=== PATIENT | female | born 1995 | race Caucasian/White ===

== ENCOUNTER 2019-08-20 19:54 | Emergency (ER) | payer OTHER, SELFPAY ==
--- NOTE | ~2019-08-20 | XR_ITS ---
EXAMINATION: XR ankle LT min 3V DATE: 08/20/2019 20:25 INDICATION: Left lateral ankle pain TECHNIQUE: Anteroposterior, lateral, mortise, and additional oblique view of the ankle were obtained. COMPARISON: 02/09/2018 FINDINGS: There is no fracture, dislocation, or subluxation. A dorsal calcaneal enthesophyte is again noted. Mild mid foot osteoarthritis is unchanged. IMPRESSION: 1. No acute osseous abnormality. Reviewed, dictated and finalized at location A. 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
[2019-08-20 20:07] VITALS: BP 153/107; PULSE 114; RESP 18; TEMP 37.3; O2SAT 99
--- NOTE | 2019-08-20 20:13 | ED.LOWEXIN ---
HPI - Extremity Injury (Lower) General Chief Complaint: Extremity Injury, Lower Stated Complaint: L ankle pain Time Seen by Provider: 08/20/19 20:13 Source: patient and RN notes reviewed Mode of arrival: ambulatory Limitations: no limitations History of Present Illness HPI Narrative: Pt is a 24 y/o female presenting to the ED c/o ankle pain. Pt reports she has been experiencing rt ankle pain recently. Pt states she has a Hx of Osteoporosis and notes she has been going on walks to try and lose weight recently. Pt denies any obvious twist or injury to his rt ankle. Onset (ago): unknown Injury: Right: ankle Other symptoms: none Related Data Home Medications Medication Instructions Recorded Confirmed atorvastatin 40 mg PO DAILY 08/20/19 08/20/19 fluoxetine 20 mg PO DAILY 08/20/19 08/20/19 glipizide 10 mg PO BID 08/20/19 08/20/19 insulin glargine [Basaglar KwikPen 34 unit SUBCUT BID 08/20/19 08/20/19 U-100 Insulin] lamotrigine 50 mg PO DAILY 08/20/19 08/20/19 lamotrigine 150 mg PO ACHS 08/20/19 08/20/19 lisinopril-hydrochlorothiazide 1 tablet PO DAILY 08/20/19 08/20/19 metformin 500 mg PO BID 08/20/19 08/20/19 trazodone 50 mg PO PRN 08/20/19 08/20/19 Allergies Allergy/AdvReac Type Severity Reaction Status Date / Time No Known Allergies Allergy Verified 08/20/19 20:18 Review of Systems Review of Systems: All systems reviewed & are unremarkable except as noted in HPI and below Musculoskeletal: Musculoskeletal: Reports other (Rt ankle pain) [facility] Past Medical History Medical History Anxiety Depression Leg fracture, left Osteoarthritis Type II diabetes mellitus Surgical History Surgical History History of musculoskeletal system surgery Lt leg Social History Social History Smoking status: Unknown if ever smoked Gender identity (if verbalized by the patient): Female Exam Const: General: cooperative, no acute distress and alert Nutritional Appearance: obese Orientation/consciousness: patient oriented x3 Limitations: no limitations HENMT: Mouth: Yes lip normal Resp: Effort & Inspection: normal respiratory effort Cardio: Peripheral pulses: posterior tibial pulses present (2+) and dorsalis pedis present (2+) Skin: General skin exam: normal color Neuro: General: patient oriented x3 Cognition (Neuro): normal cognition Speech: normal speech Extrem: General: normal to inspection, full ROM and edema (Minimal trace pedal bilaterally) Left lower extremity: ankle (Tenderness to lateral and medial aspects of lt ankle) Psych: Mental Status: mental status grossly normal Affect: normal affect Attitude: cooperative Course Course Emergency Course: Patient with no acute findings noted on x-ray. Exam unremarkable. Will discharge home. Advised primary care follow-up. Vital Signs Vital signs: Vital Signs Temperature 99.1 F 08/20/19 20:07 Pulse Rate 114 H 08/20/19 20:07 Respiratory Rate 18 08/20/19 20:07 Blood Pressure 153/107 H 08/20/19 20:07 Pulse Oximetry 99 08/20/19 20:07 Temperature 99.1 F 08/20/19 20:07 Pulse Rate 114 H 08/20/19 20:07 Respiratory Rate 18 08/20/19 20:07 Blood Pressure 153/107 H 08/20/19 20:07 Pulse Oximetry 99 08/20/19 20:07 MDM - Extremity Injury (Lower) Imaging Data Radiologist's impression: ITS Impressions Ankle X-Ray 08/20/19 20:31 IMPRESSION: 1. No acute osseous abnormality. Critical Care Time Critical Care Time Critical Care Time: No Discharge Plan Discharge Clinical Impression: Ankle pain, left Qualifiers: Chronicity: unspecified Qualified Code(s): M25.572 - Pain in left ankle and joints of left foot Patient Disposition: Home, Self-Care Condition: Stable Additional Instructions: Follow up with primary care provider for further care. May take acetaminophen 1000 mg patricia
[2019-08-20 21:01] VITALS: BP 139/100; PULSE 105; RESP 20; TEMP 37.7; O2SAT 98
== END 2019-08-20 21:04 | disposition home or self-care (01) ==
PROVIDERS: Emergency Provider Emergency Medicine
DX: M25.572 Pain in left ankle and joints of left foot (principal); E11.9 Type 2 diabetes mellitus without complications; Z79.4 Long term (current) use of insulin; Z79.84 Long term (current) use of oral hypoglycemic drugs; F41.9 Anxiety disorder, unspecified; F32.9 Major depressive disorder, single episode, unspecified
CPT/HCPCS: 73610; 99283

== ENCOUNTER 2020-10-30 22:26 | Emergency (ER) | payer OTHER, SELFPAY ==
--- NOTE | ~2020-10-30 | CT_ITS ---
EXAMINATION: CT abdomen pelvis w con INDICATION: Diffuse abdominal pain TECHNIQUE: Computed tomographic images of the abdomen and pelvis were obtained after the administrati on of 100 cc of Omnipaque 350 intravenous contrast. The dose-length product (DLP) was 1821.67 mGy-cm. Automated exposure control and iterative reconstruction technique were employed. COMPARISON: None available FINDINGS: The lung bases are clear. The heart size is normal. The liver is diffusely low in attenuati on when compared with the spleen, consistent with hepatic steatosis. The spleen, pancreas, gallbladde r, and adrenal glands are normal. The kidneys are unremarkable. No pathologically enlarged abdominal or pelvic lymph nodes are identified. There is no free intraperitoneal gas or evidence of bowel obstr uction. The appendix is normal. There is mild lumbar spondylosis. IMPRESSION: 1. No CT correlate for the patient's symptoms. 2. Diffuse hepatic steatosis. Reviewed, dictated and finalized at location A.
[2020-10-30 22:29] VITALS: BP 138/109; PULSE 130; RESP 20; TEMP 36.1; O2SAT 99
[2020-10-30] MEDS: ONDANSETRON INJ 4 MG/2 ML VIAL IV PUSH (22:56)
[2020-10-30] MEDS: SODIUM CHLORIDE 0.9% IV 1,000 ML 999 ML IV CONT (22:56)
[2020-10-30 23:00] LABS: Basophils Absolute Auto 0.1 K/mm3 (0.0-0.1); Basophils Percent Auto 0.6 % (0.2-1.2); Eosinophils Absolute Auto 0.1 K/mm3 (0-0.3); Eosinophils Percent Auto 0.5 % (0-4.4); Hematocrit 46.6 % (37.0-47.0); Hemoglobin 15.5 g/dL (12.0-15.0); Immature Granulocyte Absolute 0.13 K/mm3 (0.00-0.031); Immature Granulocyte Percent A 0.7 % (0-0.5); Lymphocytes Absolute Auto 4.96 K/mm3 (0.9-3.2); Lymphocytes Percent Auto 25.6 % (18.3-44.2); Mean Corpuscular HGB Conc 33.3 g/dl (32-36); Mean Corpuscular Hemoglobin 26.9 pg (26-34); Mean Corpuscular Volume 80.8 fl (80-100); Mean Platelet Volume 9.1 fl (7.4-10.4); Monocytes Absolute Auto 1.3 K/mm3 (0.1-0.6); Monocytes Percent Auto 6.8 % (2.6-8.5); Neutrophils Absolute Auto 12.8 K/mm3 (1.3-6.7); Neutrophils Percent Auto 65.8 % (45.5-73.1); Platelet Count Result 536 k/mm3 (150-375); Red Blood Count 5.77 M/mm3 (4.2-5.4); Red Cell Distribution Width 13.2 % (11.5-14.5); White Blood Count 19.4 K/mm3 (4.5-10.0)
[2020-10-30 23:13] LABS: Albumin Level 5.1 g/dL (3.5-5.1); Alkaline Phosphatase 63 U/L (38-126); Anion Gap 16 mmol/L (8-16); Aspartate Amino Transferase 35 U/L (14-36); Bilirubin,Total 1.1 mg/dL (0.2-1.3); Blood Urea Nitrogen 9 mg/dL (7-17); Calcium 11.6 mg/dL (8.4-10.2); Carbon Dioxide 32 mmol/L (22-30); Chloride 88 mmol/L (98-107); Estimated CRCL calculation 150 ml/min; Estimated Glomerular Filt Rate > 60; Glucose 301 mg/dL (65-105); Lipase 122 U/L (23-300); Potassium 4.3 mmol/L (3.4-5.0); Sodium 136 mmol/L (137-145)
[2020-10-30 23:30] LABS: Alanine Aminotransferase 28 U/L (4-35)
[2020-10-31 00:53] LABS: Add Urine Microscopic? YES; Appearance Urine Cloudy (Clear); Bilirubin Urine Negative (Negative); Blood Urine Negative (Negative); Color Urine Amber (Yellow); Glucose Urine UA 2+ mg/dL (Negative); Ketones Urine 1+ mg/dL (Negative); Leukocyte Esterase Ur 3+ LEU/UL (Negative); Mucus Urine Few /lpf; Nitrate Urine Negative (Negative); Protein Urine 2+ mg/dL (Negative); Squamous Epithelial Cell Urine Many /hpf (Few); Urobilinogen Urine Negative mg/dL (<2.0); WBC Urine >75 /hpf
--- NOTE | 2020-10-31 00:56 | ED.NAVMDI ---
HPI - Nausea/Vomiting/Diarrhea General Chief complaint: Nausea/Vomiting/Diarrhea Stated complaint: heartburn, indigestion, elevated blood sugars Time Seen by Provider: 10/30/20 22:42 History of Present Illness HPI Narrative: Patient is a 25-year-old female who presents ER with nausea vomiting abdominal pain. Reports for the last couple days she has been having diarrhea but that has since stopped and then today she began having vomiting. She vomited 5 times. No blood in her stool or emesis. Denies fevers or chills or sweats. She does have diffuse cramping of her abdomen. Has found no aggravating or alleviating factors. No known sick contacts. Patient also reports her blood sugars have been running higher in the mid 200s despite being able to keep her medication down. She reports she has had a lot of heartburn associated with this and she has tried Maalox as well as Tums in the form of [id number] treatment. Related Data Home Medications Medication Instructions Recorded Confirmed atorvastatin 40 mg PO DAILY 08/20/19 08/20/19 fluoxetine 20 mg PO DAILY 08/20/19 08/20/19 glipizide 10 mg PO BID 08/20/19 08/20/19 insulin glargine [Basaglar KwikPen 34 unit SUBCUT BID 08/20/19 08/20/19 U-100 Insulin] lamotrigine 50 mg PO DAILY 08/20/19 08/20/19 lamotrigine 150 mg PO ACHS 08/20/19 08/20/19 lisinopril-hydrochlorothiazide 1 tablet PO DAILY 08/20/19 08/20/19 metformin 500 mg PO BID 08/20/19 08/20/19 trazodone 50 mg PO PRN 08/20/19 08/20/19 Allergies Allergy/AdvReac Type Severity Reaction Status Date / Time No Known Allergies Allergy Verified 08/20/19 20:18 Review of Systems Review of Systems: All systems reviewed & are unremarkable except as noted in HPI and below Constitutional: Constitutional: Denies chills, Denies fever(s) and Denies weakness ENT: Denies nasal congestion and Denies sore throat Gastrointestinal: Gastrointestinal: Reports abdominal pain, Reports heartburn, Reports diarrhea, Reports nausea and Reports vomiting Genitourinary: Genitourinary: Denies hematuria, Denies nocturia and Denies dysuria PMFSH Past Medical History Medical History (Updated 10/31/20 @ 01:59 by Naga Ambrose MD) Anxiety Depression Leg fracture, left Osteoarthritis Type II diabetes mellitus Surgical History Surgical History History of musculoskeletal system surgery Lt leg Social History Social History Smoking status: Unknown if ever smoked Gender identity (if verbalized by the patient): Female Exam Narrative: Exam Narrative: GENERAL: Well-appearing, well-nourished, and in no acute distress. HEAD: Normocephalic, atraumatic. CHEST: Clear to auscultation. No respiratory distress. HEART: Tachycardic and regular. Normal peripheral pulses. ABDOMEN: Soft, moderate diffuse tenderness with mild guarding nondistended. EXTREMITIES: Normal range of motion. No edema. SKIN: Warm, dry, no rash. NEURO: Alert and oriented x3. PSYCH: Normal mood and affect. Course Reevaluation(s) Reevaluation #1: Patient resting comfortably without emesis. Reports some of her nausea has returned and she is feeling the bile/reflux, at the back of her throat. She would like something to treat her reflux. I discussed patient's urinalysis which has a significant amount of white blood cells in it. Patient reports she has no dysuria or urinary frequency or urgency. There does appear to be quite a bit of contamination. This will be sent for culture. As for the patient's leukocytosis it is felt this is likely related to forceful vomiting and retching. Patient has been hydrated and CT scan is pending. Date: 10/31/20 Time: 01:38 Reevaluation #2: CT scan unremarkable. Patient tolerated GI cocktail and feels improved. Discharge with antiemetics and Protonix. Will give a dose of Protonix prior to discharge. Date: 10/31/20 Time: 02:04 Vital Signs Vital signs:
[2020-10-31 01:30] VITALS: BP 130/83; PULSE 118; RESP 16; O2SAT 98
[2020-10-31] MEDS: BELLADONNA ALK/PHENOB ELIX 10 ML, MAG HYDROX/ALUMINUM HYD/SIMETH 30 ML, LIDOCAINE HCL 2... PO (01:42)
[2020-10-31] MEDS: PANTOPRAZOLE SODIUM IV 40 MG VIAL IV PUSH (02:12)
[2020-10-31 02:14] VITALS: BP 134/86; PULSE 101; RESP 20; TEMP 36.3; O2SAT 97
== END 2020-10-31 02:15 | disposition home or self-care (01) ==
PROVIDERS: Emergency Provider Emergency Medicine; PCP Nurse Practitioner
DX: K52.9 Noninfective gastroenteritis and colitis, unspecified (principal); F41.9 Anxiety disorder, unspecified; F32.9 Major depressive disorder, single episode, unspecified; M19.90 Unspecified osteoarthritis, unspecified site; E11.9 Type 2 diabetes mellitus without complications; Z79.4 Long term (current) use of insulin
CPT/HCPCS: 36415; 74177; 80053; 81001; 81025; 83690; 85025; 87086; 87088; 96361; 96374; 99284; A9270; C9113; J2405; J7030; Q9967

== ENCOUNTER 2021-04-11 15:06 | Emergency (ER) | payer OTHER, SELFPAY ==
--- NOTE | 2021-04-11 15:41 | ED.URI ---
HPI - URI/Sore Throat General Chief Complaint: Upper Respiratory Infection Stated Complaint: Sore throat,Cough,Congestion Time Seen by Provider: 04/11/21 15:30 Source: patient, family and RN notes reviewed Mode of arrival: ambulatory Limitations: no limitations History of Present Illness HPI Narrative: 25 year old female accompanied by significant other presents to express care with complaints of sore throat, cough and congestion since Wednesday. Patient states that she has been taking OTC DayQuil for her symptoms without resolution. Patient states that she has dry cough which does cause some discomfort to chest when she coughs. Patient denies any fevers,chills or sweats, denies any body aches. Patient has not had COVID vaccinations, no reported exposure to ill contacts. MD elicited complaint: cough, sore throat and nasal congestion Related Data Home Medications Medication Instructions Recorded Confirmed atorvastatin 40 mg PO DAILY 08/20/19 08/20/19 fluoxetine 20 mg PO DAILY 08/20/19 08/20/19 glipizide 10 mg PO BID 08/20/19 08/20/19 insulin glargine [Basaglar KwikPen 34 unit SUBCUT BID 08/20/19 08/20/19 U-100 Insulin] lamotrigine 50 mg PO DAILY 08/20/19 08/20/19 lamotrigine 150 mg PO ACHS 08/20/19 08/20/19 lisinopril-hydrochlorothiazide 1 tablet PO DAILY 08/20/19 08/20/19 metformin 500 mg PO BID 08/20/19 08/20/19 trazodone 50 mg PO PRN 08/20/19 08/20/19 Allergies Allergy/AdvReac Type Severity Reaction Status Date / Time No Known Allergies Allergy Verified 08/20/19 20:18 Review of Systems Review of Systems: CONSTITUTIONAL: Denies fever, chills, or sweats. EYES: Denies visual changes, redness, or discharge. ENT: Positive for rhinorrhea, congestion, sore throat, no otalgia. CARDIOVASCULAR: Denies chest pain, palpitations, or edema. RESPIRATORY: Positive for dry cough, denies any dyspnea, reports some pain to chest when coughing only. GASTROINTESTINAL: Denies abdominal pain, nausea, vomiting, or diarrhea. GENITOURINARY: Denies dysuria or hematuria. SKIN: Denies rash or itching. MUSCULOSKELETAL: Denies back pain, joint pain, or myalgia. NEUROLOGIC: Denies headache, numbness, or weakness. PSYCHIATRIC:Positive history of anxiety or depression. All systems reviewed & are unremarkable except as noted in HPI and below PMFSH Past Medical History Medical History (Updated 04/12/21 @ 12:58 by Grace Braswell NP) Anxiety Depression Hyperlipidemia Hypertension Leg fracture, left Osteoarthritis Type II diabetes mellitus Surgical History Surgical History (Updated 04/12/21 @ 12:55 by Grace Braswell NP) History of musculoskeletal system surgery Lt leg History of tonsillectomy and adenoidectomy Social History Social History Smoking status: Unknown if ever smoked Gender identity (if verbalized by the patient): Female Comments At time of signature, agree with nursing past medical, surgical, social and family history. There is no relevant family history pertinent to the presenting complaint Exam Narrative: GENERAL: Well-appearing, well-nourished, obese unkept appearance and in no acute distress. HEAD: Normocephalic, atraumatic. EYES: PERRLA and EOMI. ENT: Nares red with clear rhinorrhea no epistaxis. Mucous membranes moist.TM's normal with good light reflex, throat has some redness, no lesions or exudates tonsils absent. post nasal drainage present. NECK: Supple.no lymphadenopathy CHEST: Clear to auscultation. No respiratory distress.dry cough noted,SAO2 99% on room air, no tachypnea noted. HEART: Regular rate and rhythm. No murmur heard. Normal peripheral pulses. ABDOMEN: Soft, nontender, nondistended, normal active bowel sounds. EXTREMITIES: Normal range of motion. No edema. SKIN: Warm, dry, no rash. NEURO: No focal deficits. Alert and oriented x3. Course Vital Signs Vital signs: Vital Signs Temperature 36.8 C 04/11/21 15:50 Pulse Rate 101 H 04/11
[2021-04-11 15:50] VITALS: BP 133/79; PULSE 101; RESP 16; TEMP 36.8; O2SAT 99
== END 2021-04-11 15:58 | disposition home or self-care (01) ==
PROVIDERS: Emergency Provider Registered Nurse; PCP Nurse Practitioner
DX: J32.9 Chronic sinusitis, unspecified (principal); R05.9 Cough, unspecified; E78.5 Hyperlipidemia, unspecified; I10 Essential (primary) hypertension; M19.90 Unspecified osteoarthritis, unspecified site; E11.9 Type 2 diabetes mellitus without complications; F41.9 Anxiety disorder, unspecified; F32.9 Major depressive disorder, single episode, unspecified
CPT/HCPCS: 99213; G0463

== ENCOUNTER 2021-09-23 13:24 | Outpatient (CLI) | payer OTHER, SELFPAY ==
--- NOTE | 2021-09-23 13:36 | ECHO_ITS ---
Patient Info Name: Lynne Cruz Age: 26 years : 1995 Gender: Female Ht: 67 in Wt: 265 lbs BSA: 2.44 m2 HR: 97 bpm BP: 130 / 102 mmHg Technical Quality: Fair Exam Date: 09/23/2021 1:48 PM Exam Location: [facility] Patient Status: Outpatient Admit Date: 09/23/2021 Staff Ordering Physician: Ronni Lucio DO Poultry Farm Manager: Abhi Gonzalez RDCS, RT Attending Provider: Ronni Lucio DO Referring Physician: Naveed LOWE; Exam Type: CA echo doppler color flow Study Info Indications R06.02 - Shortness of breath Complete two-dimensional, color flow and Doppler transthoracic echocardiogram is performed. Summary 1. Complete two-dimensional, color flow and Doppler transthoracic echocardiogram is performed. 2. Left ventricular chamber dimension is normal. 3. Left ventricular systolic function is normal, estimated at 60-65%. 4. The left ventricular diastolic function is grade I diastolic dysfunction. 5. E/e' 5 is not elevated. Left Ventricle E/e' 5 is not elevated. Left ventricular chamber dimension is normal. Left ventricular systolic function is normal, estimated at 60-65%. The left ventricular diastolic function is grade I diastolic dysfunction. Right Ventricle Right ventricular systolic function is normal and with normal TAPSE 2.2 cm. Right ventricular chamber dimension is normal. Left Atria Left atrial chamber dimension is normal. Right Atria Right atrial chamber dimension is normal. Aortic Valve The aortic valve is probable trileaflet. There is no aortic valve stenosis. There is no aortic valve regurgitation. Pulmonic Valve There is no pulmonic regurgitation. Mitral Valve There is no mitral valve stenosis. There is no mitral valve regurgitation. Tricuspid Valve There is no tricuspid valve regurgitation. Pericardium/Pleural There is no pericardial effusion. Inferior Vena Cava Normal inferior vena cava with >50% collapse upon inspiration consistent with normal right atrial pressure, 5 mmHg. Aorta The aortic root size at the sinus of Valsalva is normal. Left Ventricular Outflow Tract Name Value Normal LVOT 2D LVOT Diameter 2.1 cm LVOT Doppler LVOT Peak Gradient 4 mmHg LVOT Mean Gradient 2 mmHg LVOT VTI 16 cm LVOT VTI/AV VTI Ratio 0.9 LVOT Stroke Volume 57 ml LVOT CO 5.3 l/min LVOT CI 2.2 l/min/m2 Mitral Valve Name Value Normal MV Doppler MV Decel Kingfisher 409 cm/s2 MV PHT 42 ms MV Area (PHT) 5.2 cm2 4.0-5.0 MV Diastolic Function
== END 2021-09-23 13:25 | disposition home or self-care (01) ==
LOC: ANHCARD 13:25
PROVIDERS: PCP Nurse Practitioner; Visit Provider Internal Medicine Cardiovascular Disease
DX: R06.00 Dyspnea, unspecified (principal)
CPT/HCPCS: 93306

== ENCOUNTER 2021-10-01 17:44 | Emergency (ER) | payer OTHER, SELFPAY ==
--- NOTE | ~2021-10-01 | XR_ITS ---
EXAM: XR foot RT min 3V HISTORY: DROPPED FROZEN BRISKET ONTO RIGHT FOOT COMPARISON: None available FINDINGS: Normal mineralization. No fracture or dislocation. Mild hallux valgus. High arch. Achilles enthesopathy. IMPRESSION: No acute osseous finding in the right foot. Reviewed, dictated and finalized at location K.
--- NOTE | 2021-10-01 17:46 | ED.LOWEXIN ---
HPI - Extremity Injury (Lower) General Chief Complaint: Extremity Injury, Lower Stated Complaint: INJURED R FOOT Time Seen by Provider: 10/01/21 17:46 Source: patient and RN notes reviewed History of Present Illness HPI Narrative: Patient is a 26-year-old female presents the urgent care with complaints of right foot injury. Patient states that this morning at 11:30 AM she dropped a piece of frozen meat on her right foot. Patient states that it immediately swelled up and bruised. Patient states that she is put ice on the injury but denies of any use of [id number] medication for pain. No other acute complaints or injuries. No acute distress noted. Patient aware of the plan of care. Some parts of this dictation were generated by voice recognition software and may contain typographical and/or grammatical inaccuracies. Related Data Home Medications Medication Instructions Recorded Confirmed glipizide 10 mg PO BID 08/20/19 09/09/21 insulin glargine [Basaglar KwikPen 34 unit SUBCUT BID 08/20/19 09/09/21 U-100 Insulin] lisinopril-hydrochlorothiazide 1 tablet PO DAILY 08/20/19 09/09/21 metformin 500 mg PO BID 08/20/19 09/09/21 buspirone 10 mg tablet 10 mg PO TID 09/04/21 09/09/21 empagliflozin 25 mg tablet 25 mg PO DAILY 09/04/21 09/09/21 ergocalciferol (vitamin D2) 1,250 1,250 mcg PO WEEKLY 09/04/21 09/09/21 mcg (50,000 unit) capsule lamotrigine 200 mg tablet 200 mg PO DAILY 09/04/21 09/09/21 bupropion HCl mg PO 10/01/21 empagliflozin [Jardiance] mg 10/01/21 Allergies Allergy/AdvReac Type Severity Reaction Status Date / Time No Known Allergies Allergy Verified 09/09/21 14:30 Review of Systems Review of Systems: CONSTITUTIONAL: Denies fever, chills, or sweats. EYES: Denies visual changes, redness, or discharge. ENT: Denies rhinorrhea, congestion, sore throat, or otalgia. CARDIOVASCULAR: Denies chest pain, palpitations, or edema. RESPIRATORY: Denies cough or dyspnea. GASTROINTESTINAL: Denies abdominal pain, nausea, vomiting, or diarrhea. GENITOURINARY: Denies dysuria or hematuria. SKIN: Denies rash or itching. MUSCULOSKELETAL: Reports of right foot pain NEUROLOGIC: Denies headache, numbness, or weakness. All other systems reviewed are negative, except as documented in HPI. [facility] Past Medical History Medical History (Updated 10/01/21 @ 18:52 by RACHELE Hernandez) Anxiety Depression Diarrhea Hyperlipidemia Hypertension Leg fracture, left Nausea Osteoarthritis PCOS (polycystic ovarian syndrome) Type II diabetes mellitus Surgical History Surgical History (Updated 04/12/21 @ 12:55 by Grace Braswell NP) History of musculoskeletal system surgery Lt leg History of tonsillectomy and adenoidectomy Social History Social History (Updated 09/09/21 @ 14:32 by Nicole Scott MA) Smoking status: Never smoker Alcohol intake: current Substance use: current Substance use type: marijuana Gender identity (if verbalized by the patient): Female Comments At the time of my signature, I reviewed and agree with the nursing past medical, surgical, social, and family history. There is no relevant family history pertinent to the patient complaint. Exam Narrative: GENERAL: This is a well-nourished, well-developed patient, in no apparent distress. HEAD: normocephalic, atraumatic. EYES: PERRL. Sclera clear/white. Vision is grossly intact. EARS: External ears normal NOSE: External nose normal with no obvious nasal discharge, nares without redness, no rhinorrhea. THROAT: Mucous membranes moist NECK: Neck supple CARDIOVASCULAR: Regular rate and rhythm without murmurs, gallops, or rubs. RESPIRATORY: Clear to auscultation. Breath sounds equal bilaterally. No wheezes, rales, or rhonchi. SKIN: warm, intact with no suspicious lesions or rash, good texture and turgor. NEURO: awake, alert, and oriented to person, place and time. There were no obvious focal neurologic abnormalities. EXTREMITIES: Pos
[2021-10-01 17:50] VITALS: BP 149/83; PULSE 118; RESP 16; TEMP 36.4; O2SAT 100
[2021-10-01 17:53] VITALS: BP 149/83; PULSE 118; RESP 16; TEMP 36.4; O2SAT 100
== END 2021-10-01 19:00 | disposition home or self-care (01) ==
PROVIDERS: Emergency Provider Nurse Practitioner Family; PCP Nurse Practitioner
DX: S90.31XA Contusion of right foot, initial encounter (principal); W20.8XXA Other cause of strike by thrown, projected or falling object, initial encounter; E78.5 Hyperlipidemia, unspecified; I10 Essential (primary) hypertension; M19.90 Unspecified osteoarthritis, unspecified site; E28.2 Polycystic ovarian syndrome; E11.9 Type 2 diabetes mellitus without complications; F12.90 Cannabis use, unspecified, uncomplicated; F41.9 Anxiety disorder, unspecified; F32.A Depression, unspecified; Z79.4 Long term (current) use of insulin; Z79.84 Long term (current) use of oral hypoglycemic drugs
CPT/HCPCS: 73630; 99213; G0463

== ENCOUNTER 2021-11-25 07:18 | Outpatient (CLI) | payer OTHER, SELFPAY ==
--- NOTE | ~2021-11-25 | NM_ITS ---
EXAM: NM gastric emptying study DATE: 11/25/2021 11:51 INDICATION: Nausea TECHNIQUE: A gastric emptying study was performed using the methodology of Tracie ARGUETA, et al. J Nucl Med 2007; 48:568-572. The patient was given a meal consisting of 2 scrambled eggs labeled with 1 mCi Tc-99m sulfur colloid, 2 slices of toast, two packages of jam, and approximately 120 mL of water. Si multaneous anterior and posterior 1-min images of the abdomen were obtained with the patient supine a t multiple time points over a total period of 4 hours. The geometric mean of anterior and posterior v iews was determined, and the percentage retention was calculated for each time point. COMPARISON: None. FINDINGS: Gastric retention of the radiotracer-labeled meal was 49%, 9%, and 3% at the 1-hour, 2-hour, and 4-ho ur time points, respectively. With this technique, apparent rapid gastric emptying is suggested by <3 0% gastric retention at 1 hour. Delayed gastric emptying is defined by gastric retention of >90% at 1 hour, >60% retention at 2 hours, or >10% retention at 4 hours. IMPRESSION: 1. Normal gastric emptying. Reviewed, dictated and finalized at location B. IMPRESSION: 1. Normal gastric emptying.
== END 2021-11-25 07:19 | disposition home or self-care (01) ==
LOC: ANHIMG 07:21
PROVIDERS: PCP Nurse Practitioner; Visit Provider Nurse Practitioner Family
DX: R11.0 Nausea (principal)
CPT/HCPCS: 78264; A9541

== ENCOUNTER 2022-02-10 08:55 | Outpatient (CLI) | payer OTHER, SELFPAY ==
--- NOTE | 2022-02-10 09:00 | EST_ITS ---
Patient Info Name: Lynne Cruz Age: 26 years : 1995 Gender: Female Ht: 67 in Wt: 262 lbs BSA: 2.43 m2 Exam Date: 02/10/2022 9:37 AM Exam Location: [facility] Stress Patient Status: Outpatient Admit Date: 02/10/2022 Staff Ordering Physician: Ronni Lucio DO Attending Provider: Ronni Lucio DO Exercise Technologist: Amelie Triana RDCS Exercise Physician: Ronni Lucio DO Exam Type: CA stress test treadmill Study Info Indications R07.9 - Chest pain, unspecified A treadmill exercise stress test was performed. Summary 1. 1. Negative Lenny exercise stress test for ischemic ST changes by ECG criteria. 2. 2. Reduced functional capacity, achieving 6 METs of workload. 3. 3. Baseline hypertension. 4. 4. Rapid HR response to exercise. 5. 5. Appropriate HR recovery at 1 minute post exercise. 6. 6. No imaging with stress testing. 7. 7. Patient informed of the above results. Protocol: Lenny Stress ECG Details Stage: REST Duration (min): 5 min : 54 sec Speed (mph): 0.0 Grade (%): 0 HR (bpm): 99 SBP (mmHg): 146 DBP (mmHg): 105 METS: --- Stage: REST Duration (min): 11 min : 3 sec Speed (mph): 0.0 Grade (%): 0 HR (bpm): 102 SBP (mmHg): 146 DBP (mmHg): 105 METS: --- Stage: STAGE 1 Duration (min): 1 min : 0 sec Speed (mph): 1.7 Grade (%): 10 HR (bpm): 131 SBP (mmHg): 146 DBP (mmHg): 105 METS: --- Stage: STAGE 1 Duration (min): 2 min : 0 sec Speed (mph): 1.7 Grade (%): 10 HR (bpm): 144 SBP (mmHg): 146 DBP (mmHg): 105 METS: --- Stage: STAGE 1 Duration (min): 3 min : 0 sec Speed (mph): 1.7 Grade (%): 10 HR (bpm): 153 SBP (mmHg): 199 DBP (mmHg): 100 METS: --- Stage: STAGE 2 Duration (min): 0 min : 57 sec Speed (mph): 2.5 Grade (%): 12 HR (bpm): 168 SBP (mmHg): 199 DBP (mmHg): 100 METS: --- Stage: RECOVERY Duration (min): 0 min : 2 sec Speed (mph): 1.5 Grade (%): 0 HR (bpm): 168 SBP (mmHg): 199 DBP (mmHg): 100 METS: --- Stage: RECOVERY Duration (min): 1 min : 2 sec Speed (mph): 0.0 Grade (%): 0 HR (bpm): 141 SBP (mmHg): 162 DBP (mmHg): 93 METS: --- Stage: RECOVERY Duration (min): 2 min : 2 sec Speed (mph): 0.0 Grade (%): 0 HR (bpm): 124 SBP (mmHg): 162 DBP (mmHg): 93 METS: --- Stage: RECOVERY Duration (min): 3 min : 2 sec Speed (mph): 0.0 Grade (%): 0 HR (bpm): 118 SBP (mmHg): 154 DBP (mmHg): 95 METS: --- Stage: RECOVERY Duration (min): 4 min : 2 sec Speed (mph): 0.0 Grade (%): 0 HR (bpm): 115 SBP (mmHg): 154 DBP (mmHg): 95 METS: --- Stage: RECOVERY Duration (min): 5 min : 2 sec Speed (mph): 0.0 Grade (%): 0 HR (bpm): 114 SBP (mmHg): 141 DBP (mmHg): 97 METS: --- Stage: RECOVERY Duration (min):
== END 2022-02-10 08:56 | disposition home or self-care (01) ==
LOC: ANHCARD 08:58
PROVIDERS: PCP Nurse Practitioner; Visit Provider Internal Medicine Cardiovascular Disease
DX: R07.9 Chest pain, unspecified (principal)
CPT/HCPCS: 93017

== ENCOUNTER 2022-05-14 17:03 | Emergency (ER) | payer OTHER, SELFPAY ==
[2022-05-14 17:37] VITALS: BP 102/60; PULSE 110; RESP 16; TEMP 36.5; O2SAT 99
--- NOTE | 2022-05-14 18:35 | ED.NAVMDI ---
HPI - Nausea/Vomiting/Diarrhea General Chief complaint: Nausea/Vomiting/Diarrhea Stated complaint: nausea, vomitting Time Seen by Provider: 05/14/22 18:35 Source: patient, RN notes reviewed and old records reviewed Mode of arrival: ambulatory Limitations: no limitations History of Present Illness HPI Narrative: 26 year old female with complaints of nausea and vomiting since Wednesday with feelings of indigestion and today she has felt some dizziness. Patient reports that she received her flu shot yesterday. Patient reports that she has maintained a bland diet and has been drinking garage for the electrolytes but some times she will keep foot down and sometimes not. Patient denies any abdominal pain or tenderness, denies any dysuria or any signs or sy of urinary tract infections or any fevers. Patient is diabetic and on insulin. MD elicited complaint: nausea and vomiting Pertinent past history: other (diabetic) Onset (ago): day(s) (3) Treatment prior to arrival: other (bland diet) Related Data Home Medications Medication Instructions Recorded Confirmed lisinopril 10 1 tablet PO DAILY 08/20/19 05/14/22 mg-hydrochlorothiazide 12.5 mg tablet metformin 500 mg tablet 500 mg PO BID 08/20/19 05/14/22 buspirone 10 mg tablet 10 mg PO BID 09/04/21 05/14/22 empagliflozin 25 mg tablet 25 mg PO DAILY 09/04/21 05/14/22 (Jardiance) lamotrigine 200 mg tablet 175 mg PO DAILY 09/04/21 05/14/22 (Lamictal) bupropion HCl 300 mg 24 hr tablet, 300 mg PO DAILY 10/01/21 05/14/22 extended release dulaglutide 3 mg/0.5 mL 3 mg subcut WEEKLY 04/30/22 05/14/22 subcutaneous pen injector (Trulicity) insulin glargine 100 unit/mL (3 40 unit subcut BID 04/30/22 05/14/22 mL) subcutaneous pen (Basaglar KwikPen U-100 Insulin) topiramate 50 mg tablet (Topamax) 75 mg PO BID 04/30/22 05/14/22 cholecalciferol (vitamin D3) 1,250 1,250 mcg PO WEEKLY 05/14/22 05/14/22 mcg (50,000 unit) capsule Allergies Allergy/AdvReac Type Severity Reaction Status Date / Time No Known Allergies Allergy Verified 05/14/22 17:38 Review of Systems Review of Systems: CONSTITUTIONAL: Denies fever, chills, or sweats. ENT: Denies rhinorrhea, congestion, sore throat, or otalgia. CARDIOVASCULAR: Denies chest pain, palpitations, or edema. RESPIRATORY: Denies cough or dyspnea. GASTROINTESTINAL: Reports no abdominal pain, positive for nausea, vomiting, no diarrhea. GENITOURINARY: Denies dysuria or hematuria. SKIN: Denies rash or itching. MUSCULOSKELETAL: Denies back pain, joint pain, or myalgia. NEUROLOGIC: Denies headache, numbness, or weakness.reports some dizziness All systems reviewed & are unremarkable except as noted in HPI and below PMFSH Past Medical History Medical History Anxiety Depression Diarrhea Hyperlipidemia Hypertension Leg fracture, left Nausea Osteoarthritis PCOS (polycystic ovarian syndrome) Type II diabetes mellitus Surgical History Surgical History History of musculoskeletal system surgery Lt leg History of tonsillectomy and adenoidectomy Social History Social History Smoking status: Never smoker Alcohol intake: current Substance use: current Substance use type: marijuana Gender identity (if verbalized by the patient): Female Comments At time of signature, agree with nursing past medical, surgical, social and family history. There is no relevant family history pertinent to the presenting complaint Exam Narrative: GENERAL: Well-appearing, well-nourished, obese and in no acute distress. HEAD: Normocephalic, atraumatic. EYES: PERRLA, conjunctivae clear, and EOMI. ENT: Nares clear. Mucous membranes moist. Oropharynx without edema, erythema, or lesions. Tonsils not enlarged and without exudate. NECK: Supple. No lymphadenopathy CHEST: Speaks in
== END 2022-05-14 19:18 | disposition home or self-care (01) ==
PROVIDERS: Emergency Provider Registered Nurse; PCP Nurse Practitioner
DX: K29.70 Gastritis, unspecified, without bleeding (principal); E78.5 Hyperlipidemia, unspecified; I10 Essential (primary) hypertension; M19.90 Unspecified osteoarthritis, unspecified site; E28.2 Polycystic ovarian syndrome; E11.9 Type 2 diabetes mellitus without complications; F41.9 Anxiety disorder, unspecified; F32.A Depression, unspecified
CPT/HCPCS: 87804; 99213; G0463

== ENCOUNTER 2023-01-30 07:08 | Outpatient (CLI) | payer OTHER, SELFPAY ==
[2023-01-30 08:16] LABS: Alanine Aminotransferase 25 U/L (6-35); Albumin Level 4.2 g/dL (3.5-5.1); Alkaline Phosphatase 60 U/L (38-126); Anion Gap 10 mmol/L (8-16); Aspartate Amino Transferase 18 U/L (14-36); Bilirubin,Total 0.4 mg/dL (0.2-1.3); Blood Urea Nitrogen 12 mg/dL (7-17); Carbon Dioxide 25 mmol/L (22-30); Chloride 101 mmol/L (98-107); Cholesterol 235 mg/dL (0-200); Estimated Glomerular Filt Rate > 60; Glucose 146 mg/dL (65-110); HDL Direct 29 mg/dL; Sodium 136 mmol/L (137-145); Triglycerides 404 mg/dL (<150)
[2023-01-30 08:27] LABS: LDL Cholesterol Direct 159 mg/dL
[2023-01-30 12:31] LABS: Free T4 Free Thyroxine Reflex 0.84 ng/dL (0.78-2.19)
[2023-01-30 14:12] LABS: Total Triiodothyronine (T3) 1.25 NG/ML (0.97-1.69)
== END 2023-01-30 07:09 | disposition home or self-care (01) ==
PROVIDERS: PCP Nurse Practitioner; Visit Provider Internal Medicine Cardiovascular Disease
DX: I10 Essential (primary) hypertension (principal)
CPT/HCPCS: 36415; 80053; 80061; 83735; 84439; 84443; 84480

== ENCOUNTER 2023-03-17 08:33 | Outpatient (CLI) | payer OTHER, SELFPAY ==
--- NOTE | 2023-03-24 16:03 | WPDHOMESLEEP ---
Sleep Study - Home Unattended Date of Study: 03/17/23 Ordering Provider: Ronni Lucio DO Interpreting Provider: Caron Wallace MD Home Sleep Study Type: Watch PAT Height: 1.7 m Weight: 118.841 kg Body Mass Index: 41.0 Neck Circumference (inches): 17 [place]: 14 Reason for Sleep Study Excessive daytime sleepiness, loud snoring, waking in the night Sleep History Lynne Cruz is a 27-year-old female who has problems with loud snoring and excessive daytime sleepiness. Her medical comorbidities include hypertension, diabetes, anxiety and depression, acid reflux and ADHD combined type as well as bipolar 1 disorder. She wakes up during the night tossing and turning. She has had poor sleep since childhood. She had a sleep study performed years ago and she tried wearing CPAP with different masks but was not able to tolerate CPAP with any particular mask. Her spout positioner now referred for sleep study due to her diagnosis of postural orthostatic tachycardia syndrome. She has dizziness, shortness of breath, difficulty breathing, feeling tired, presyncopal symptoms, tremors, high heart rate, low blood pressure and migraine headaches. The POTS symptoms started a year and half ago. She rarely awakens at night feeling short of breath. She frequently awakens at night with heartburn, belching or coughing. She constantly snores at night but is never loud enough that others complain about it. She constantly has difficulty sleeping if she has a cold. She does not wake up gasping for breath at night. She rarely has breathing problems at night observed by others but she has been told that she stops breathing at night. She occasionally sweats excessively at night. She frequently notices her heart pounding or beating irregularly at night. She frequently falls asleep during the day and frequently falls asleep involuntarily. She does not fall asleep while driving. She frequently has loss of muscle tone with strong emotion. She constantly has daytime difficulties due to excessive sleepiness. She occasionally feels paralyzed on waking or falling asleep. She constantly has vivid dreamlike scenes upon awakening or falling asleep. She occasionally feels afraid to go to sleep. She occasionally has nightmares. She frequently remembers her dreams. She constantly has racing thoughts. She frequently feels sad or depressed. She constantly has anxiety, muscular tension and notices parts of her body jerking. She does not kick at night. She rarely has crawling and aching feelings in her legs. She does not have any kind of leg pain at night. She denies morning jaw pain. She does not grind her teeth during sleep. She constantly is bothered by pain during the day however she is not awakened by pain at night. She constantly wakes up feeling stiff in the morning, wakes up with sore or achy muscles, and constantly wakes up with pain in the neck and spine. She has memory problems, concentration difficulties, fatigue, headaches and dizziness. She takes antacids regularly. Her normal bedtime is between 9:30 p.m. and 10:00 p.m., taking a variable amount of time to fall asleep. If she is extremely tired she may be able to fall asleep within 20 minutes but otherwise it may take 30 minutes or up to an hour to fall asleep. She wakes up 2-3 times some nights and on. Other nights it may be even more often. During these awakening she tosses and turns, trying to get comfortable to return to sleep. She estimates getting 4-6 hours of sleep most nights. Her normal wake time is between 8:00 a.m. and 9:00 a.m.. Bedtime and wake time on weekends varies more than this. Her sleep interferes with her social life and her libido. She takes naps in the afternoon. A short nap lasting 10 or 15 minutes is not refreshing. She is usually drowsy for 3 hours or longer after waking. She feels better in the afternoon compared to other times of the day. Habits: Quit tobacco 6-7 years ago. N
[2023-03-26 13:28] VITALS: BMI 41.0
== END 2023-03-18 13:23 | disposition home or self-care (01) ==
LOC: ANHCSM 08:34
PROVIDERS: PCP Nurse Practitioner; Visit Provider Internal Medicine Cardiovascular Disease
DX: G47.10 Hypersomnia, unspecified (principal)
CPT/HCPCS: 95800

== ENCOUNTER 2023-03-27 07:12 | Outpatient (CLI) | payer OTHER, SELFPAY ==
[2023-03-27 08:02] LABS: LDL Cholesterol Direct 123 mg/dL
[2023-03-27 08:06] LABS: Alanine Aminotransferase 23 U/L (6-35); Albumin Level 4.5 g/dL (3.5-5.1); Alkaline Phosphatase 64 U/L (38-126); Anion Gap 11 mmol/L (8-16); Aspartate Amino Transferase 18 U/L (14-36); Bilirubin,Total 0.4 mg/dL (0.2-1.3); Blood Urea Nitrogen 13 mg/dL (7-17); Calcium 9.4 mg/dL (8.4-10.2); Carbon Dioxide 22 mmol/L (22-30); Chloride 106 mmol/L (98-107); Cholesterol 207 mg/dL (0-200); Estimated Glomerular Filt Rate > 60; Glucose 156 mg/dL (65-110); HDL Direct 29 mg/dL; Potassium 4.2 mmol/L (3.4-5.0); Sodium 139 mmol/L (137-145); Triglycerides 447 mg/dL (<150)
== END 2023-03-27 07:13 | disposition home or self-care (01) ==
LOC: ANHLAB 07:14
PROVIDERS: PCP Nurse Practitioner; Visit Provider Internal Medicine Cardiovascular Disease
DX: E78.5 Hyperlipidemia, unspecified (principal)
CPT/HCPCS: 36415; 80053; 80061

== ENCOUNTER 2023-05-03 09:41 | Outpatient (CLI) | payer OTHER, SELFPAY ==
--- NOTE | 2023-05-24 14:47 | WPDSLEEPSTUD ---
Sleep Study Date of Study: 05/03/23 Ordering Provider: Junito Jones APRN Interpreting Physician: Sharron Brown DO Sleep Study Type: Polysomnogram Height: 1.7 m Weight: 118.388 kg Body Mass Index: 40.8 Neck Circumference (inches): 17 [place]: 14 Reason for Sleep Study The patient had a WatchPAT home sleep test on 03/17/2023 that showed an overall AHI of 0.8 with desaturation down to 75%. [place] of 14. Sleep History Lynne Cruz is a? 27-year-old female who has problems with loud snoring and excessive daytime sleepiness.? ? Her medical comorbidities include hypertension, diabetes, anxiety and depression, acid reflux and ADHD combined type as well as bipolar 1 disorder.? She wakes up during the night tossing and turning.? She has had poor sleep since childhood.? She had a sleep study performed years ago and she tried wearing CPAP with different masks but was not able to tolerate CPAP with any particular mask.? 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 She has dizziness, shortness of breath, difficulty breathing, feeling tired, presyncopal symptoms, tremors, high heart rate, low blood pressure and migraine headaches.? The POTS symptoms started a year and half ago.? She rarely awakens at night feeling short of breath.? She frequently awakens at night with heartburn, belching or coughing.? She constantly snores at night but is never loud enough that others complain about it.? She constantly has difficulty sleeping if she has a cold.? She does not wake up gasping for breath at night.? She rarely has breathing problems at night observed by others but she has been told that she stops breathing at night.? She occasionally sweats excessively at night.? She frequently notices her heart pounding or beating irregularly at night.? She frequently falls asleep during the day and frequently falls asleep involuntarily.? She does not fall asleep while driving.? She frequently has loss of muscle tone with strong emotion.? She constantly has daytime difficulties due to excessive sleepiness.? She occasionally feels paralyzed on waking or falling asleep.? She constantly has vivid dreamlike scenes upon awakening or falling asleep.? She occasionally feels afraid to go to sleep.? She occasionally has nightmares.? She frequently remembers her dreams.? She constantly has racing thoughts.? She frequently feels sad or depressed.? She constantly has anxiety, muscular tension and notices parts of her body jerking.? She does not kick at night.? She rarely has crawling and aching feelings in her legs.? She does not have any kind of leg pain at night.? She denies morning jaw pain.? She does not grind her teeth during sleep.? She constantly is bothered by pain during the day however she is not awakened by pain at night.? She constantly wakes up feeling stiff in the morning, wakes up with sore or achy muscles, and constantly wakes up with pain in the neck and spine.? She has memory problems, concentration difficulties, fatigue, headaches and dizziness.? She takes antacids regularly. Her normal bedtime is between 9:30 p.m. and 10:00 p.m., taking a variable amount of time to fall asleep.? If she is extremely tired she may be able to fall asleep within 20 minutes but otherwise it may take 30 minutes or up to an hour to fall asleep.? She wakes up 2-3 times some nights and on.? Other nights it may be even more often.? During these awakening she tosses and turns, trying to get comfortable to return to sleep.? She estimates getting 4-6 hours of sleep most nights.? Her normal wake time is between 8:00 a.m. and 9:00 a.m..? Bedtime and wake time on weekends varies more than this.? Her sleep interferes with her social life and her libido.? She takes naps in the afternoon.? A short nap lasting 10 or 15 minutes is not refreshing.? She is usually drowsy for 3 hours or longer after waking.? She feels better in the afternoon compared to ot
[2023-05-24 15:19] VITALS: BMI 40.8
== END 2023-05-04 06:08 | disposition home or self-care (01) ==
PROVIDERS: PCP Nurse Practitioner; Visit Provider Nurse Practitioner Family
DX: G47.30 Sleep apnea, unspecified (principal); G47.61 Periodic limb movement disorder; Z72.821 Inadequate sleep hygiene
CPT/HCPCS: 95810

== ENCOUNTER 2023-06-02 10:28 | Outpatient (CLI) | payer OTHER, SELFPAY ==
[2023-06-02 12:02] LABS: Alanine Aminotransferase 19 U/L (6-35); Albumin Level 4.5 g/dL (3.5-5.1); Alkaline Phosphatase 96 U/L (38-126); Anion Gap 12 mmol/L (8-16); Aspartate Amino Transferase 15 U/L (14-36); Bilirubin,Total 0.5 mg/dL (0.2-1.3); Blood Urea Nitrogen 12 mg/dL (7-17); Calcium 9.7 mg/dL (8.4-10.2); Carbon Dioxide 22 mmol/L (22-30); Chloride 102 mmol/L (98-107); Cholesterol 237 mg/dL (0-200); Estimated Glomerular Filt Rate > 60; Glucose 234 mg/dL (65-110); HDL Direct 33 mg/dL; Potassium 3.7 mmol/L (3.4-5.0); Sodium 136 mmol/L (137-145); Triglycerides 367 mg/dL (<150)
[2023-06-02 12:13] LABS: LDL Cholesterol Direct 146 mg/dL
== END 2023-06-02 10:29 | disposition home or self-care (01) ==
LOC: ANHLAB 10:31
PROVIDERS: PCP Nurse Practitioner; Referring Provider Nurse Practitioner Family; Visit Provider Internal Medicine Cardiovascular Disease
DX: E78.5 Hyperlipidemia, unspecified (principal); G47.61 Periodic limb movement disorder
CPT/HCPCS: 36415; 80053; 80061; 82728

== ENCOUNTER 2023-08-20 18:26 | Inpatient (IN) | payer OTHER, SELFPAY ==
--- NOTE | ~2023-08-20 | CT_ITS ---
EXAMINATION: CT foot LT w con DATE: 08/21/2023 01:10 INDICATION: Diabetic foot ulcer. TECHNIQUE: Computed tomography (CT) of the left foot was performed with 100 cc Omnipaque 350 intraven ous contrast. The dose-length product was 562.00 mGy-cm. Automated exposure control and iterative rec onstruction technique were employed. COMPARISON: Left ankle series dated 08/20/2019 FINDINGS: No evidence for osteomyelitis or abscess. There is dorsal soft tissue swelling, suspicious for cellulitis. Clinically correlate. Cortical irregularity along the medial posterior talar dome and posterior medial tibial plafond may represent osteochondral defects, likely chronic. Ossific fragmen ts adjacent to the medial anterior process of the calcaneus likely represents old fracture fragment. IMPRESSION: 1. No evidence for osteomyelitis or abscess. If there is continued concern for osteomyelitis, further evaluation with MRI with contrast recommended. Reviewed, dictated and finalized at location A. ENER OPERATOR
[2023-08-20 18:30] VITALS: BP 138/87; PULSE 127; RESP 18; TEMP 36.3; O2SAT 98
--- NOTE | 2023-08-20 23:11 | ECG_ITS ---
Measurements Intervals [place] Rate: 116 P: 27 HI: 143 QRS: 21 QRSD: 105 T: -9 QT: 323 QTc: 449 Interpretive Statements SINUS TACHYCARDIA NONSPECIFIC T-WAVE ABNORMALITY LOW-VOLTAGE QRS IN PRECORDIAL LEADS BORDERLINE ECG ABNORMAL RHYTHM ECG NO PREVIOUS ECG AVAILABLE FOR COMPARISON Electronically Signed On 08-21-2023 14:40:52 [employer] by Fabiano Lopez M.D.
--- NOTE | 2023-08-20 23:11 | ED.LOWEXIN ---
HPI - Extremity Injury (Lower) General Chief Complaint: Extremity Injury, Lower Stated Complaint: foot infection Time Seen by Provider: 08/20/23 22:36 History of Present Illness HPI Narrative: 28-year-old female with insulin-dependent type 2 diabetes, hypertension, hyperlipidemia and obesity reports for evaluation for an ulceration to the plantar aspect of her left foot x3 weeks. Patient went to [facility] urgent care for evaluation was sent here for further workup. She states that the ulceration developed approximately 3 weeks ago after she does to callus. She has been covering it with a bandage in has been having blood drainage from the site for 3 weeks. States she has been soaking it and keeping it covered without improvement. She reports low-grade fevers around 99.5, otherwise afebrile. Denies nausea or vomiting. States her blood sugars at home have been around 80-140. Related Data Home Medications Medication Instructions Recorded Confirmed empagliflozin 25 mg tablet 25 mg PO DAILY 09/04/21 07/13/23 (Jardiance) bupropion HCl 300 mg 24 hr tablet, 300 mg PO DAILY 10/01/21 07/13/23 extended release buspirone 10 mg tablet 30 mg PO BID 11/18/22 07/13/23 atomoxetine 40 mg capsule 60 mg PO DAILY 04/12/23 07/13/23 (Strattera) cyclobenzaprine 10 mg tablet 10 mg PO ONCE 04/12/23 07/13/23 desvenlafaxine succinate 50 mg 100 mg PO DAILY 04/12/23 07/13/23 tablet,extended release 24 hr (Pristiq) metformin 500 mg tablet 1,000 mg PO BID 04/12/23 07/13/23 topiramate 50 mg tablet (Topamax) 200 mg PO BID 04/12/23 07/13/23 omeprazole magnesium 20 mg 20 mg PO DAILY 04/19/23 07/13/23 tablet,delayed release (Prilosec OTC) niacin 500 mg tablet 1,000 mg PO DAILY 06/03/23 07/13/23 insulin glargine 100 unit/mL (3 35 unit subcut BID 07/13/23 07/13/23 mL) subcutaneous pen (Basaglar KwikPen U-100 Insulin) omega 4-omt-iea-fish oil 1,200 mg cap PO 07/13/23 07/13/23 (144 mg-216 mg) capsule (Fish Oil) semaglutide 0.25 mg or 0.5 mg (2 0.25 mg subcut WEEKLY 07/13/23 07/13/23 mg/3 mL) subcutaneous pen injector (Ozempic) Allergies Allergy/AdvReac Type Severity Reaction Status Date / Time No Known Allergies Allergy Verified 07/13/23 10:30 Review of Systems Review of Systems: CONSTITUTIONAL: Denies fever, chills, or sweats. EYES: Denies visual changes, redness, or discharge. ENT: Denies rhinorrhea, congestion, sore throat, or otalgia. CARDIOVASCULAR: Denies chest pain, palpitations, or edema. RESPIRATORY: Denies cough or dyspnea. GASTROINTESTINAL: Denies abdominal pain, nausea, vomiting, or diarrhea. GENITOURINARY: Denies dysuria or hematuria. SKIN: See HPI MUSCULOSKELETAL: Denies back pain, joint pain, or myalgia. NEUROLOGIC: Denies headache, numbness, or weakness. PSYCHIATRIC: Denies anxiety or depression. [facility] Past Medical History Medical History Anxiety Depression Diarrhea Hyperlipidemia Hypertension Leg fracture, left Nausea Osteoarthritis PCOS (polycystic ovarian syndrome) Type II diabetes mellitus Surgical History Surgical History History of musculoskeletal system surgery Lt leg History of tonsillectomy and adenoidectomy Social History Social History Smoking status: Former smoker Alcohol intake: current Substance use: current Substance use type: marijuana Do You Feel Safe in your Home?: Yes Lack of Transportation: No Lack of Food: Never True Current Housing: I Have Housing Concerned About Future Housing: No Difficulty Paying Gas/Electric Bills: No Difficulty Paying for Meds: No Currently Unemployed: No Education: High School Diploma/GED Difficulty w/ Childcare or Family Care: No Living arrangements: with friend(s) Occupation/Education: unemployed Gender identity (if verbalized by the patient
[2023-08-20 23:41] VITALS: BP 134/99; PULSE 120; RESP 16; O2SAT 97
[2023-08-20 23:59] LABS: Basophils Percent Auto 0.1 % (0.2-1.2); Eosinophils Absolute Auto 0.1 K/mm3 (0-0.3); Eosinophils Percent Auto 0.7 % (0-4.4); Hematocrit 42.1 % (37.0-47.0); Hemoglobin 13.6 g/dL (12.0-15.0); Immature Granulocyte Absolute 0.05 K/mm3 (0.00-0.031); Immature Granulocyte Percent A 0.4 % (0-0.5); Lymphocytes Absolute Auto 3.25 K/mm3 (0.9-3.2); Lymphocytes Percent Auto 27.2 % (18.3-44.2); Mean Corpuscular HGB Conc 32.3 g/dl (32-36); Mean Corpuscular Hemoglobin 26.7 pg (26-34); Mean Corpuscular Volume 82.5 fl (80-100); Mean Platelet Volume 10.4 fl (7.4-10.4); Monocytes Absolute Auto 1.2 K/mm3 (0.1-0.6); Monocytes Percent Auto 9.9 % (2.6-8.5); Neutrophils Absolute Auto 7.4 K/mm3 (1.3-6.7); Neutrophils Percent Auto 61.7 % (45.5-73.1); Platelet Count Result 303 k/mm3 (150-375); Red Cell Distribution Width 14.5 % (11.5-14.5)
[2023-08-21] VITALS (12 sets, daily range): BP systolic 103–132; BP diastolic 54–88; PULSE 59–114; RESP 16–18; TEMP 35.9–36.7; O2SAT 97–100
[2023-08-21 00:18] LABS: Lactic Acid Reflex 1.1 mmol/L (0.7-2.0)
[2023-08-21 00:20] LABS: Alanine Aminotransferase 24 U/L (6-35); Albumin Level 4.6 g/dL (3.5-5.1); Alkaline Phosphatase 78 U/L (38-126); Anion Gap 13 mmol/L (8-16); Aspartate Amino Transferase 23 U/L (14-36); Bilirubin,Total 0.8 mg/dL (0.2-1.3); Blood Urea Nitrogen 12 mg/dL (7-17); CRP 3.5 mg/dL (<1.0); Carbon Dioxide 20 mmol/L (22-30); Chloride 103 mmol/L (98-107); Estimated CRCL calculation 143 ml/min; Estimated Glomerular Filt Rate > 60; Glucose 155 mg/dL (65-110); Potassium 3.6 mmol/L (3.4-5.0); Sodium 136 mmol/L (137-145)
[2023-08-21] MEDS: SODIUM CHLORIDE 0.9% IV 1,000 ML 999 ML IV CONT ×2 (00:31→03:06)
[2023-08-21 00:43] LABS: Erythrocyte Sedimentation Rate 18 mm/hr (0-20)
[2023-08-21] MEDS: CEFEPIME 2 GM/NS 50 ML 2 GM/50 ML BAG IVPB ×2 (03:06→17:10)
[2023-08-21] MEDS: MORPHINE SULFATE (*CRX) 4 MG/ML INJ IV PUSH (03:07)
[2023-08-21] MEDS: metroNIDAZOLE 500 MG/ISO 100ML 500 MG/100 ML BAG 100 MG IVPB (03:55)
[2023-08-21] MEDS: SODIUM CHLORIDE 0.9% IV 1,000 ML 100 ML IV CONT ×2 (03:55→17:09)
--- NOTE | 2023-08-21 04:55 | PC.NURSE ---
Flagyl still infusing at this time. Pt told by this RN to press call light when finished so vancomycin could be started. Vancomycin hanging on pump at bedside.
[2023-08-21] MEDS: VANCOMYCIN 1,250 MG/NS 250 ML 1,250 MG/250 ML BAG 166.67 MG IVPB ×2 (05:42→07:43)
--- NOTE | 2023-08-21 06:10 | PC.NURSE ---
Pt blood glucose 140mg/dL.
[2023-08-21 06:12] LABS: Glucose Point of Care 140 mg/dl (65-105)
--- NOTE | 2023-08-21 07:10 | PC.NURSE ---
Report given to DIMA Rainey at this time.
--- NOTE | 2023-08-21 07:29 | PM.IMHP ---
H&P: HPI History of Present Illness Date/Time: 08/21/23 07:29 Chief Complaint: LT Foot wound Narrative: Patient is a 28-year-old female who presented to the emergency department with complaints of left foot wound with swelling and severe pain that has increasingly worsened the last 2 days. Patient reported she had a callus on the pad of her foot that she picked at which has now gotten increasingly worse for the last 2 weeks. Patient reported she attempted to keep it clean with soap and water as well as changing daily dressings however the pain got so bad last night she was unable to walk and noticed swelling on the dorsal of the foot. Patient did report a past medical history of HLD, neuropathy, HTN, diabetes 2, and iron deficiency anemia. 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 Initial findings in the emergency department showed a WBC of 12, CRP 3.5, and hyperglycemia insulin of155, otherwise other labs unremarkable. Upon assessments patient did have notable erythema slowly with open no drainage noted. Wound culture was sent as well as blood cultures pending. Patient will be admitted to the medical-surgical unit for further treatment of cellulitis and diabetic foot ulcer with IV antibiotic therapy pending culture and sensitivities continue to control blood sugars to encourage wound healing, wound consult placed. Patient denied any chest pain, shortness is breath nausea vomiting, chills but did reports low-grade fevers prior to admission. Review of Systems Review of Systems: All systems reviewed & are unremarkable except as noted in HPI and below PMFSH Past Medical History Medical History Anxiety Depression Diarrhea Hyperlipidemia Hypertension Leg fracture, left Nausea Osteoarthritis PCOS (polycystic ovarian syndrome) Type II diabetes mellitus Surgical History Surgical History History of musculoskeletal system surgery Lt leg History of tonsillectomy and adenoidectomy Social History Social History Smoking status: Never smoker Second hand tobacco smoke exposure: No Alcohol intake: never Substance use: never Substance use type: does not use Do You Feel Safe in your Home?: Yes Lack of Transportation: No Lack of Food: Never True Current Housing: I Have Housing Concerned About Future Housing: No Difficulty Paying Gas/Electric Bills: No Difficulty Paying for Meds: No Currently Unemployed: No Education: High School Diploma/GED Difficulty w/ Childcare or Family Care: No Living arrangements: with friend(s) Occupation/Education: unemployed Gender identity (if verbalized by the patient): Female Spiritual care concerns: No Meds Home Medications and Allergies Home Medications Medication Instructions Recorded Confirmed Type empagliflozin 25 mg tablet 25 mg PO DAILY 09/04/21 08/21/23 History (Jardiance) bupropion HCl 300 mg 24 hr tablet, 300 mg PO DAILY 10/01/21 08/21/23 History extended release comp.stocking,thigh,long,small #12 ea 08/14/22 08/21/23 Rx buspirone 10 mg tablet 30 mg PO BID 11/18/22 08/21/23 History lisinopril 5 mg tablet 5 mg PO DAILY #90 tabs 02/10/23 08/21/23 Rx cyclobenzaprine 10 mg tablet 10 mg PO ONCE 04/12/23 08/21/23 History metformin 500 mg tablet 1,000 mg PO BID 04/12/23 08/21/23 History omeprazole magnesium 20 mg 20 mg PO DAILY 04/19/23 08/21/23 History tablet,delayed release (Prilosec OTC) ferrous sulfate 325 mg (65 mg 325 mg PO DAILY #30 tabs 06/02/23 08/21/23 Rx iron) tablet,delayed release atorvastatin 40 mg tablet 40 mg PO DAILY #30 tabs 06/03/23 08/21/23 Rx niacin 500 mg tablet 1,000 mg PO DAILY 06/03/23 08/21/23 History insulin glargine 100 unit/mL (3 35 unit subcut BID 07/13/23 08/21/23 Histo
--- NOTE | 2023-08-21 07:37 | ADMGEN ---
This patient, Lynne Cruz, was admitted to Virtual Bed 3rd Floor-3. Patient/family oriented to hospital policies and general routines including ID bracelet, bed and alarms, visiting hours, pain management, procedures, bathroom and other care routines, personal items, smoking policy, room service/diet, and visiting hours. Information on how to activate the Rapid Response Team has been discussed. Patient/Family are encouraged to report perceived risks to care and to ask questions if they do not understand what they are told or what they should do. currently in ER doing admission, will be transferred to the floor.
[2023-08-21 07:59] LABS: Hematocrit 38.4 % (37.0-47.0); Mean Corpuscular HGB Conc 31.3 g/dl (32-36); Mean Corpuscular Hemoglobin 26.2 pg (26-34); Mean Corpuscular Volume 83.8 fl (80-100); Mean Platelet Volume 9.6 fl (7.4-10.4); Platelet Count Result 256 k/mm3 (150-375); Red Blood Count 4.58 M/mm3 (4.2-5.4); Red Cell Distribution Width 14.6 % (11.5-14.5); White Blood Count 8.8 K/mm3 (4.5-10.0)
[2023-08-21 08:09] LABS: Alanine Aminotransferase 20 U/L (6-35); Alkaline Phosphatase 59 U/L (38-126); Anion Gap 11 mmol/L (8-16); Aspartate Amino Transferase 18 U/L (14-36); Bilirubin,Total 0.6 mg/dL (0.2-1.3); Blood Urea Nitrogen 11 mg/dL (7-17); Calcium 8.8 mg/dL (8.4-10.2); Carbon Dioxide 20 mmol/L (22-30); Chloride 106 mmol/L (98-107); Cholesterol 106 mg/dL (0-200); Estimated CRCL calculation 164 ml/min; Estimated Glomerular Filt Rate > 60; Glucose 118 mg/dL (65-110); HDL Direct 26 mg/dL; Magnesium 1.9 mg/dL (1.6-2.3); Potassium 3.7 mmol/L (3.4-5.0); Sodium 137 mmol/L (137-145); Triglycerides 193 mg/dL (<150)
[2023-08-21 08:20] LABS: LDL Cholesterol Direct 67 mg/dL
[2023-08-21] MEDS: TOPIRAMATE 100 MG TABLET 200 MG PO ×2 (08:40→17:11)
[2023-08-21] MEDS: lisinopriL 5 MG TABLET PO (08:41)
[2023-08-21] MEDS: LABETALOL HCL 100 MG TABLET 200 MG PO ×2 (08:41→21:09)
[2023-08-21 09:02] LABS: Glucose Point of Care 114 mg/dl (65-105)
--- NOTE | 2023-08-21 09:58 | PC.NURSE ---
This RN called report to 3rd med/surg and was told you can just send them up unable to acquire RN name.
[2023-08-21 10:39] LABS: Hemoglobin A1C 7.7 % (<5.7)
[2023-08-21 11:20] LABS: Glucose Point of Care 112 mg/dl (65-105)
--- NOTE | 2023-08-21 13:21 | PM.CNGS ---
Assessment and Plan Assessment and plan (1) Diabetic foot ulcer: Qualifiers: Diabetes mellitus type: type 2 Diabetic foot ulcer location: midfoot Laterality: left Non-pressure ulcer stage: unspecified non-pressure ulcer stage Qualified Code(s): E11.621 - Type 2 diabetes mellitus with foot ulcer; L97.429 - Non-pressure chronic ulcer of left heel and midfoot with unspecified severity Code(s): E11.621 - Type 2 diabetes mellitus with foot ulcer; L97.509 - Non-pressure chronic ulcer of other part of unspecified foot with unspecified severity Status: Acute Assessment and Plan: I have reviewed the CT and discussed the findings with the patient. Na she has a diabetic foot wound on the plantar surface of her left foot. The CT does not show any sign of abscess or osteomyelitis. Continue broad-spectrum IV antibiotics. Will initiate local wound care with mupirocin ointment topically daily. Discussed with patient that if there is continued purulence drainage then she might require incision and drainage. Recovery from this will be somewhat difficult due to her inability to keep her weight on her heel. She might require orthopedic evaluation for the chronic Achilles and calf issues. (2) Type II diabetes mellitus: Qualifiers: Diabetes mellitus local intermodal truck driver insulin use: with local intermodal truck driver use Diabetes mellitus complication status: with skin complications Diabetes mellitus complication detail: with foot ulcer Qualified Code(s): E11.621 - Type 2 diabetes mellitus with foot ulcer; L97.509 - Non-pressure chronic ulcer of other part of unspecified foot with unspecified severity; Z79.4 - [facility] (current) use of insulin Code(s): E11.9 - Type 2 diabetes mellitus without complications Status: Acute (3) BMI 40.0-44.9, adult: Code(s): Z68.41 - Body mass index [BMI] 40.0-44.9, adult Status: Acute History of Present Illness Consult details Consult date: 08/21/23 Reason for consult: other (foot wound) Requesting physician: Ynes Lie PA-C Narrative: This is a 28-year-old woman who I am asked to see for a diabetic foot wound. She 1st began noticing a wound the bottom of her left foot about 3 weeks ago. She states that she has trouble placing weight on her heel due to some calf and Achilles issues. She developed a callus on her left forefoot and then began noticing a wound about 3 weeks ago. Over the past several days it has become more swollen and painful. There is also some purulence drainage. She began experiencing some swelling on the top of her foot and therefore decided to come to the emergency department for further evaluation and treatment. She is diabetic and her most recent A1c as an outpatient was 8. It is 7.7 during this admission. She denies any other prior foot wounds. She has tried physical therapy twice for the Achilles and calf issues but still continues to have trouble with tightness which limits pressure being placed on her heel. Review of Systems Review of Systems: All systems reviewed & are unremarkable except as noted in HPI and below Eyes: Eyes: Denies change in vision ENT: Denies hearing loss, Denies neck pain and Denies sore throat Cardiovascular: Cardiovascular: Denies chest pain and Denies dyspnea Respiratory: Respiratory: Denies cough, Denies dyspnea and Denies wheezing Genitourinary: Genitourinary: Denies hematuria and Denies dysuria Musculoskeletal: Musculoskeletal: Reports as per HPI, Denies arthralgias, Denies joint swelling and Denies neck pain Allergic/Immunologic: Allergic/Immunologic: Denies wheezing [facility] Past Medical History Medical History Anxiety Depression Diarrhea Hyperlipidemia Hypertension Leg fracture, left Nausea Osteoarthritis PCOS (polycystic ovarian syndrome) Type II diabetes mellitus Surgical History Surgical History (Reviewed 08/21/23 @ 13:25 by Reji Gregorio
[2023-08-21 16:14] LABS: Glucose Point of Care 115 mg/dl (65-105)
[2023-08-21] MEDS: VANCOMYCIN 1,500 MG/NS 500 ML 1,500 MG/500 ML BAG 250 MG IVPB (17:10)
[2023-08-21] MEDS: PREGABALIN (*CRX) 75 MG CAPSULE PO (17:11)
[2023-08-21] MEDS: MUPIROCIN 2% OINT 22 GM TUBE 1 APPLIC TOPICAL (17:11)
[2023-08-21] MEDS: busPIRone HCL 10 MG TABLET 30 MG PO (17:11)
[2023-08-21] MEDS: OMEGA 3 POLYUNSAT FATTY ACIDS 1 GM CAP 2 GM PO (17:11)
[2023-08-21] MEDS: INSULIN GLARGINE (*BKC) 100 UNITS/ML 35 UNITS SUB-Q (21:09)
[2023-08-21 21:21] LABS: Glucose Point of Care 147 mg/dl (65-105)
[2023-08-22] VITALS (13 sets, daily range): BP systolic 101–128; BP diastolic 58–98; PULSE 96–105; RESP 16–18; TEMP 36.7–37; O2SAT 97–100
[2023-08-22] MEDS: CEFEPIME 2 GM/NS 50 ML 2 GM/50 ML BAG IVPB ×2 (02:11→14:27)
[2023-08-22] MEDS: VANCOMYCIN 1,500 MG/NS 500 ML 1,500 MG/500 ML BAG 250 MG IVPB (04:46)
--- NOTE | 2023-08-22 04:53 | PHAR ---
Atomoxetine [Strattera] 60 mg capsule- TAKE 1 CAPSULE BY MOUTH DAILY. verified in pharmacy and sent back to [address] [place] [address] for inpatient use
[2023-08-22 06:40] LABS: Hematocrit 39.3 % (37.0-47.0); Hemoglobin 12.1 g/dL (12.0-15.0); Mean Corpuscular HGB Conc 30.8 g/dl (32-36); Mean Corpuscular Hemoglobin 26.4 pg (26-34); Mean Corpuscular Volume 85.6 fl (80-100); Mean Platelet Volume 10.1 fl (7.4-10.4); Platelet Count Result 273 k/mm3 (150-375); Red Blood Count 4.59 M/mm3 (4.2-5.4); Red Cell Distribution Width 14.4 % (11.5-14.5); White Blood Count 7.7 K/mm3 (4.5-10.0)
[2023-08-22 06:55] LABS: Estimated CRCL calculation 164 ml/min; Estimated Glomerular Filt Rate > 60
[2023-08-22 08:08] LABS: Glucose Point of Care 107 mg/dl (65-105)
--- NOTE | 2023-08-22 09:02 | P.PNIM_ITS ---
Progress Note: A&P Assessment and Plan (1) Diabetic foot ulcer: Qualifiers: Diabetes mellitus type: type 2 Diabetic foot ulcer location: midfoot Laterality: left Non-pressure ulcer stage: unspecified non-pressure ulcer stage Qualified Code(s): E11.621 - Type 2 diabetes mellitus with foot ulcer; L97.429 - Non-pressure chronic ulcer of left heel and midfoot with unspecified severity Code(s): E11.621 - Type 2 diabetes mellitus with foot ulcer; L97.509 - Non-pressure chronic ulcer of other part of unspecified foot with unspecified severity Status: Acute (2) Cellulitis: Qualifiers: Laterality: left Site of cellulitis: extremity Site of cellulitis of extremity: lower extremity Qualified Code(s): L03.116 - Cellulitis of left lower limb Code(s): L03.90 - Cellulitis, unspecified Status: Acute (3) Hyperlipidemia: Code(s): E78.5 - Hyperlipidemia, unspecified Status: Acute (4) Type II diabetes mellitus: Qualifiers: Diabetes mellitus complication detail: with foot ulcer Diabetes mellitus complication status: with skin complications Diabetes mellitus terminal operations manager insulin use: with terminal operations manager use Qualified Code(s): E11.621 - Type 2 diabetes mellitus with foot ulcer; L97.509 - Non-pressure chronic ulcer of other part of unspecified foot with unspecified severity; Z79.4 - assistant terminal manager (current) use of insulin Code(s): E11.9 - Type 2 diabetes mellitus without complications Status: Acute (5) Hypertension: Code(s): I10 - Essential (primary) hypertension Status: Acute (6) Obesity: Qualifiers: Body mass index: BMI 40.0-44.9 Obesity classification: adult class 3 (BMI >= 40) Obesity type: due to excess calories Serious obesity comorbidity presence: unspecified whether serious comorbidity present Qualified Code(s): E66.01 - Morbid (severe) obesity due to excess calories; Z68.41 - Body mass index [BMI] 40.0-44.9, adult Code(s): E66.9 - Obesity, unspecified Status: Acute Plan Diabetic foot Ulcer/Cellulitis * of the LT foot * Blood cultures NGTD * Wound culture pending * CT: No evidence for osteomyelitis or abscess. If there is continued concern for osteomyelitis, further evaluation with MRI with contrast recommended. * CRP mildly elevated 3.2 * Vancomycin and cefepime will deescalate pending culture and sensitivities * Leukocytosis improved back to normal * IV fluids * Glucose control * Recommended duration of antibiotic therapy for 7-10 days. * Recommend follow-up with Podiatry outpatient may need also referral to Ortho Diabetes * Accu-Cheks a.c. HS * sliding scale insulin * hold oral diabetic medications * resume patient's home long-acting * Hemoglobin A1c goal less than 7 pending * lipid panel pending * Diabetic diet * consult to dietitian * encourage lifestyle modifications and weight loss * Optimize Jerson inhibitors and statins. 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 * encourage outpatient weight loss clinic * BMI . * Diet exercise counseling done. * consult to dietitian Code status: Full code per patient DVT prophylaxis: Lovenox
--- NOTE | 2023-08-22 09:02 | PM.IMPN ---
Progress Note: A&P Assessment and Plan (1) Diabetic foot ulcer: Qualifiers: Diabetes mellitus type: type 2 Diabetic foot ulcer location: midfoot Laterality: left Non-pressure ulcer stage: unspecified non-pressure ulcer stage Qualified Code(s): E11.621 - Type 2 diabetes mellitus with foot ulcer; L97.429 - Non-pressure chronic ulcer of left heel and midfoot with unspecified severity Code(s): E11.621 - Type 2 diabetes mellitus with foot ulcer; L97.509 - Non-pressure chronic ulcer of other part of unspecified foot with unspecified severity Status: Acute (2) Cellulitis: Qualifiers: Laterality: left Site of cellulitis: extremity Site of cellulitis of extremity: lower extremity Qualified Code(s): L03.116 - Cellulitis of left lower limb Code(s): L03.90 - Cellulitis, unspecified Status: Acute (3) Hyperlipidemia: Code(s): E78.5 - Hyperlipidemia, unspecified Status: Acute (4) Type II diabetes mellitus: Qualifiers: Diabetes mellitus complication detail: with foot ulcer Diabetes mellitus complication status: with skin complications Diabetes mellitus watermelon inspector insulin use: with halfway use Qualified Code(s): E11.621 - Type 2 diabetes mellitus with foot ulcer; L97.509 - Non-pressure chronic ulcer of other part of unspecified foot with unspecified severity; Z79.4 - long term acute care registered nurse (current) use of insulin Code(s): E11.9 - Type 2 diabetes mellitus without complications Status: Acute (5) Hypertension: Code(s): I10 - Essential (primary) hypertension Status: Acute (6) Obesity: Qualifiers: Body mass index: BMI 40.0-44.9 Obesity classification: adult class 3 (BMI >= 40) Obesity type: due to excess calories Serious obesity comorbidity presence: unspecified whether serious comorbidity present Qualified Code(s): E66.01 - Morbid (severe) obesity due to excess calories; Z68.41 - Body mass index [BMI] 40.0-44.9, adult Code(s): E66.9 - Obesity, unspecified Status: Acute Plan Diabetic foot Ulcer/Cellulitis of the LT foot Blood cultures NGTD Wound culture pending CT: No evidence for osteomyelitis or abscess. If there is continued concern for osteomyelitis, further evaluation with MRI with contrast recommended. CRP mildly elevated 3.2 Vancomycin and cefepime will deescalate pending culture and sensitivities Leukocytosis improved back to normal IV fluids Glucose control Recommended duration of antibiotic therapy for 7-10 days. Recommend follow-up with Podiatry outpatient may need also referral to Ortho Diabetes Tania bradshaw HS sliding scale insulin hold oral diabetic medications resume patient's home long-acting Hemoglobin A1c goal less than 7 pending lipid panel pending Diabetic diet consult to dietitian encourage lifestyle modifications and weight loss Optimize Jerson inhibitors and statins. 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 encourage outpatient weight loss clinic BMI . Diet exercise counseling done. consult to dietitian Code status: Full code per patient DVT prophylaxis: Lovenox Stress ulcer prophylaxis: Protonix 40 daily PT/OT notes: Pending Disposition: Patient admitted for IV ABX pending cultures and sensitivities. Patient is able to ambulate swelling improving can likely discharge home tomorrow need follow-up podiatry outpatient. Patient does have insurance case manager if needed on [facility] placed as emergency contact Time Spent With Patient Time with patient: 15 - 25 minutes Subjective Date/time seen:
[2023-08-22] MEDS: ATORVASTATIN 40 MG TABLET PO (09:20)
[2023-08-22] MEDS: buPROPion HCL XL (24 HR) 150 MG TABCR 300 MG PO (09:21)
[2023-08-22] MEDS: busPIRone HCL 10 MG TABLET 30 MG PO ×2 (09:21→16:26)
[2023-08-22] MEDS: LABETALOL HCL 100 MG TABLET 200 MG PO ×2 (09:22→20:44)
[2023-08-22] MEDS: FERROUS SULFATE 325 MG TABLET DR PO (09:22)
[2023-08-22] MEDS: EMPAGLIFLOZIN 25 MG TABLET PO (09:22)
[2023-08-22] MEDS: PREGABALIN (*CRX) 75 MG CAPSULE PO ×2 (09:23→16:26)
[2023-08-22] MEDS: PANTOPRAZOLE 40 MG TABLET PO (09:23)
[2023-08-22] MEDS: OMEGA 3 POLYUNSAT FATTY ACIDS 1 GM CAP 2 GM PO ×2 (09:23→16:28)
[2023-08-22] MEDS: lisinopriL 5 MG TABLET PO (09:23)
[2023-08-22] MEDS: TOPIRAMATE 100 MG TABLET 200 MG PO ×2 (09:24→16:26)
[2023-08-22] MEDS: INSULIN GLARGINE (*BKC) 100 UNITS/ML 35 UNITS SUB-Q ×2 (09:26→20:46)
[2023-08-22] MEDS: ENOXAPARIN 40 MG/0.4 ML SYRINGE SUB-Q (09:27)
[2023-08-22 09:33] LABS: Alanine Aminotransferase 20 U/L (6-35); Albumin Level 3.8 g/dL (3.5-5.1); Alkaline Phosphatase 49 U/L (38-126); Anion Gap 9 mmol/L (8-16); Aspartate Amino Transferase 18 U/L (14-36); Bilirubin,Total 0.6 mg/dL (0.2-1.3); Blood Urea Nitrogen 8 mg/dL (7-17); Calcium 8.9 mg/dL (8.4-10.2); Carbon Dioxide 19 mmol/L (22-30); Chloride 110 mmol/L (98-107); Estimated CRCL calculation 164 ml/min; Estimated Glomerular Filt Rate > 60; Glucose 128 mg/dL (65-110); Potassium 3.7 mmol/L (3.4-5.0); Sodium 138 mmol/L (137-145)
[2023-08-22 12:23] LABS: Glucose Point of Care 96 mg/dl (65-105)
--- NOTE | 2023-08-22 14:20 | PM.PNGS ---
Progress Note: A&P Assessment and Plan (1) Diabetic foot ulcer: Qualifiers: Diabetes mellitus type: type 2 Diabetic foot ulcer location: midfoot Laterality: left Non-pressure ulcer stage: unspecified non-pressure ulcer stage Qualified Code(s): E11.621 - Type 2 diabetes mellitus with foot ulcer; L97.429 - Non-pressure chronic ulcer of left heel and midfoot with unspecified severity Code(s): E11.621 - Type 2 diabetes mellitus with foot ulcer; L97.509 - Non-pressure chronic ulcer of other part of unspecified foot with unspecified severity Status: Acute Assessment and Plan: No drainable abscess. Continue Mupirocin ointment daily. No surgical debridement recommended at this time. Recommend patient follow up with [facility] as an outpatient. (2) Type II diabetes mellitus: Qualifiers: Diabetes mellitus nursing home insulin use: with exterminator helper use Diabetes mellitus complication status: with skin complications Diabetes mellitus complication detail: with foot ulcer Qualified Code(s): E11.621 - Type 2 diabetes mellitus with foot ulcer; L97.509 - Non-pressure chronic ulcer of other part of unspecified foot with unspecified severity; Z79.4 - local intermodal truck driver (current) use of insulin Code(s): E11.9 - Type 2 diabetes mellitus without complications Status: Acute (3) BMI 40.0-44.9, adult: Code(s): Z68.41 - Body mass index [BMI] 40.0-44.9, adult Status: Acute Subjective Subjective Date/Time Seen: 08/22/23 14:20 Interval history: Feeling better today. Pain much improved. Swelling improved. No drainage today. Exam Extrem: Other: Small plantar wound on left foot, no surrounding erythema or drainage. No fluctuance. Objective Data Vital Signs Vital Signs: Vital Signs - 24 hr 08/21/23 16:00 08/21/23 21:09 08/21/23 21:59 Temperature 36.7 C Pulse Rate 98 103 H 103 H Respiratory Rate 18 Blood Pressure 109/61 Pulse Oximetry 99 Oxygen Delivery 08/21/23 20:00 08/21/23 20:00 08/22/23 00:00 Temperature Pulse Rate 101 H 96 Respiratory Rate Blood Pressure Pulse Oximetry Oxygen Delivery Room Air 08/22/23 06:00 08/22/23 04:00 08/22/23 09:19 Temperature 37.0 C Pulse Rate 98 100 102 H Respiratory Rate 18 Blood Pressure 101/58 L 128/98 H Pulse Oximetry 98 100 Oxygen Delivery 08/22/23 09:22 08/22/23 09:20 08/22/23 08:00 Temperature Pulse Rate 102 H 105 H Respiratory Rate Blood Pressure Pulse Oximetry 97 Oxygen Delivery Room Air 08/22/23 12:00 Temperature Pulse Rate 99 Respiratory Rate Blood Pressure Pulse Oximetry Oxygen Delivery Intake/Output Intake/Output: Intake & Output 08/19/23 08/20/23 08/21/23 08/22/23 23:59 23:59 23:59 23:59 Intake Total 5540 790 Balance 5540 790 Meds/Results Medications: Active Medications Generic Name Dose Route Start Last Admin Trade Name Freq PRN Reason Stop Dose Admin Atorvastatin Calcium 40 mg 08/21/23 09:00 08/22/23 09:20 Atorvastatin 40 Mg Tablet PO 40 mg DAILY JENNIFER Administration Bupropion HCl 300 mg 08/21/23 09:00 08/22/23 09:21 Bupropion Hcl Xl (24 Hr) 150 Mg Tabcr PO 300 mg DAILY JENNIFER Administration Buspirone HCl 30 mg 08/21/23 09:00 08/22/23 09:21 Buspirone Hcl 10 Mg Tablet PO 30 mg BID JENNIFER Administration Dextrose 12.5 gm 08/21/23 07:16 Dextrose 50% 25 Gm/50 Ml Syringe IV PUSH PRN PRN Hypoglycemia Protocol Empagliflozin 25 mg 08/21/23 09:00 08/22/23 09:22 Empagliflozin 25 Mg Tablet PO 25 mg DAILY JENNIFER Administration Enoxaparin Sodium 40 mg 08/21/23 09:00 08/22/23 09:27 Enoxaparin 40 Mg/0.4 Ml Syringe SUB-Q 40 mg DAILY JENNIFER Administration Ferrous Sulfate 325 mg 08/21/23 09:00 08/22/23 09:22 Ferrous Sulfate [address] PO 325 mg DAILY JENNIFER Administration Fish Oil 2 gm 08/21/23 09:00 08/22/23 09:23 [place] 3 Polyunsat Fatty Acids 1
--- NOTE | 2023-08-22 15:02 | PHAR ---
PT'S HOME MED BASAGLAR (INSULIN GLARGINE ) U-100 KWIKPEN VERIFIED BY PHARMACY
[2023-08-22 15:41] LABS: Vancomycin Trough 7.8 ug/mL (10.0-20.0)
--- NOTE | 2023-08-22 15:44 | PHAR ---
HOME MED: OZEMPIC (SEMEGLUTIDE) INJ; 2 MG/3ML PREFILLED PEN. VERIFIED BY PHARMACY.
[2023-08-22 17:02] LABS: Glucose Point of Care 115 mg/dl (65-105)
[2023-08-22] MEDS: VANCOMYCIN 2,000 MG/NS 500 ML 2,000 MG/500 ML BAG 250 MG IVPB (17:39)
[2023-08-22] MEDS: SODIUM CHLORIDE 0.9% IV 1,000 ML 100 ML IV CONT (17:56)
[2023-08-22 20:41] LABS: Glucose Point of Care 126 mg/dl (65-105)
[2023-08-23] VITALS (8 sets, daily range): BP systolic 111–138; BP diastolic 70–99; PULSE 93–108; RESP 17; TEMP 36.6; O2SAT 98–99
[2023-08-23] MEDS: SODIUM CHLORIDE 0.9% IV 1,000 ML 100 ML IV CONT (03:09)
[2023-08-23] MEDS: CEFEPIME 2 GM/NS 50 ML 2 GM/50 ML BAG IVPB (03:09)
[2023-08-23] MEDS: VANCOMYCIN 2,000 MG/NS 500 ML 2,000 MG/500 ML BAG 250 MG IVPB (05:18)
[2023-08-23 06:35] LABS: Hematocrit 39.6 % (37.0-47.0); Hemoglobin 12.2 g/dL (12.0-15.0); Mean Corpuscular HGB Conc 30.8 g/dl (32-36); Mean Corpuscular Hemoglobin 26.3 pg (26-34); Mean Corpuscular Volume 85.3 fl (80-100); Mean Platelet Volume 9.8 fl (7.4-10.4); Platelet Count Result 258 k/mm3 (150-375); Red Blood Count 4.64 M/mm3 (4.2-5.4); Red Cell Distribution Width 14.4 % (11.5-14.5); White Blood Count 7.5 K/mm3 (4.5-10.0)
[2023-08-23 06:45] LABS: Alanine Aminotransferase 18 U/L (6-35); Alkaline Phosphatase 54 U/L (38-126); Anion Gap 10 mmol/L (8-16); Aspartate Amino Transferase 17 U/L (14-36); Bilirubin,Total 0.6 mg/dL (0.2-1.3); Blood Urea Nitrogen 7 mg/dL (7-17); Carbon Dioxide 17 mmol/L (22-30); Chloride 112 mmol/L (98-107); Estimated CRCL calculation 194 ml/min; Estimated Glomerular Filt Rate > 60; Glucose 110 mg/dL (65-110); Potassium 3.8 mmol/L (3.4-5.0); Sodium 139 mmol/L (137-145)
[2023-08-23 07:33] LABS: Glucose Point of Care 101 mg/dl (65-105)
--- NOTE | 2023-08-23 09:06 | PCWOUND ---
WOCN NOTE received hospitalist referral for wound care assessment. patient is being followed by Dr. Pelletier for wound.
[2023-08-23] MEDS: SULFAMETHOXAZOLE/TRIMETHOPRIM 800/160 MG DS TABLET 1 TAB PO (09:57)
[2023-08-23] MEDS: PANTOPRAZOLE 40 MG TABLET PO (09:57)
[2023-08-23] MEDS: FERROUS SULFATE 325 MG TABLET DR PO (09:57)
[2023-08-23] MEDS: EMPAGLIFLOZIN 25 MG TABLET PO (09:58)
[2023-08-23] MEDS: busPIRone HCL 10 MG TABLET 30 MG PO (09:58)
[2023-08-23] MEDS: TOPIRAMATE 100 MG TABLET 200 MG PO (09:58)
[2023-08-23] MEDS: ATORVASTATIN 40 MG TABLET PO (09:58)
[2023-08-23] MEDS: buPROPion HCL XL (24 HR) 150 MG TABCR 300 MG PO (09:58)
[2023-08-23] MEDS: LABETALOL HCL 100 MG TABLET 200 MG PO (09:59)
[2023-08-23] MEDS: OMEGA 3 POLYUNSAT FATTY ACIDS 1 GM CAP 2 GM PO (09:59)
[2023-08-23] MEDS: lisinopriL 5 MG TABLET PO (09:59)
[2023-08-23] MEDS: PREGABALIN (*CRX) 75 MG CAPSULE PO (09:59)
[2023-08-23] MEDS: ENOXAPARIN 40 MG/0.4 ML SYRINGE SUB-Q (10:01)
[2023-08-23] MEDS: INSULIN GLARGINE (*BKC) 100 UNITS/ML 35 UNITS SUB-Q (10:01)
[2023-08-23 11:23] LABS: Glucose Point of Care 104 mg/dl (65-105)
--- NOTE | 2023-08-23 15:54 | P.DS_ITS ---
DS: Admitting Diagnosis Discharge Date 08/23/23 Admitting Diagnosis Cellulitis/Diabetic foot ulcer DS: Discharge Diagnosis Discharge Diagnosis (1) Diabetic foot ulcer: Qualifiers: Diabetes mellitus type: type 2 Diabetic foot ulcer location: midfoot Laterality: left Non-pressure ulcer stage: unspecified non-pressure ulcer stage Qualified Code(s): E11.621 - Type 2 diabetes mellitus with foot ulcer; L97.429 - Non-pressure chronic ulcer of left heel and midfoot with unspecified severity Code(s): E11.621 - Type 2 diabetes mellitus with foot ulcer; L97.509 - Non-pressure chronic ulcer of other part of unspecified foot with unspecified severity Status: Acute (2) Cellulitis: Qualifiers: Laterality: left Site of cellulitis: extremity Site of cellulitis of extremity: lower extremity Qualified Code(s): L03.116 - Cellulitis of left lower limb Code(s): L03.90 - Cellulitis, unspecified Status: Acute (3) Hyperlipidemia: Code(s): E78.5 - Hyperlipidemia, unspecified Status: Acute (4) Type II diabetes mellitus: Qualifiers: Diabetes mellitus continuous churn buttermaker insulin use: with correction use Diabetes mellitus complication status: with skin complications Diabetes mellitus complication detail: with foot ulcer Qualified Code(s): E11.621 - Type 2 diabetes mellitus with foot ulcer; L97.509 - Non-pressure chronic ulcer of other part of unspecified foot with unspecified severity; Z79.4 - [facility] (current) use of insulin Code(s): E11.9 - Type 2 diabetes mellitus without complications Status: Acute (5) Hypertension: Code(s): I10 - Essential (primary) hypertension Status: Acute (6) Obesity: Qualifiers: Obesity type: due to excess calories Obesity classification: adult class 3 (BMI >= 40) Serious obesity comorbidity presence: unspecified whe ther serious comorbidity present Body mass index: BMI 40.0-44.9 Qualified Code(s): E66.01 - Morbid (severe) obesity due to excess calories; Z68.41 - Body mass index [BMI] 40.0-44.9, adult Code(s): E66.9 - Obesity, unspecified Status: Acute Plan Diabetic foot Ulcer/Cellulitis * of the LT foot * Blood cultures NGTD * Wound culture pending * CT: No evidence for osteomyelitis or abscess. If there is continued concern for osteomyelitis, further evaluation with MRI with contrast recommended. * CRP mildly elevated 3.2 * Vancomycin and cefepime will deescalate pending culture and sensitivities * Leukocytosis improved back to normal * IV fluids * Glucose control * Recommended duration of antibiotic therapy for 7-10 days. * Recommend follow-up with Podiatry outpatient may need also referral to Ortho Diabetes * Accu-Cheks a.c. HS * sliding scale insulin * hold oral diabetic medications * resume patient's home long-acting * Hemoglobin A1c goal less than 7 pending * lipid panel pending * Diabetic diet * consult to dietitian * encourage lifestyle modifications and weight loss * Optimize Jerson inhibitors and statins. * Watch for hypoglycemia/hypoglycemic protocol ordered HLD * lipid panel pending * add or adjust statin * low-cholesterol diet HTN * Resumed patient's labetalol * BP per unit protocol Tachycardia * Resume patient's labetalol * Continuous playground monitor Obesity * encourage increased on physical activity and lifestyle modifications * Stress monitoring and eating disorder evaluation. * encourage outpatient weight loss clinic * BMI . * Diet exercis
--- NOTE | 2023-08-23 15:54 | PM.DS ---
DS: Admitting Diagnosis Discharge Date 08/23/23 Admitting Diagnosis Cellulitis/Diabetic foot ulcer DS: Discharge Diagnosis Discharge Diagnosis (1) Diabetic foot ulcer: Qualifiers: Diabetes mellitus type: type 2 Diabetic foot ulcer location: midfoot Laterality: left Non-pressure ulcer stage: unspecified non-pressure ulcer stage Qualified Code(s): E11.621 - Type 2 diabetes mellitus with foot ulcer; L97.429 - Non-pressure chronic ulcer of left heel and midfoot with unspecified severity Code(s): E11.621 - Type 2 diabetes mellitus with foot ulcer; L97.509 - Non-pressure chronic ulcer of other part of unspecified foot with unspecified severity Status: Acute (2) Cellulitis: Qualifiers: Laterality: left Site of cellulitis: extremity Site of cellulitis of extremity: lower extremity Qualified Code(s): L03.116 - Cellulitis of left lower limb Code(s): L03.90 - Cellulitis, unspecified Status: Acute (3) Hyperlipidemia: Code(s): E78.5 - Hyperlipidemia, unspecified Status: Acute (4) Type II diabetes mellitus: Qualifiers: Diabetes mellitus intermediate manager insulin use: with fci use Diabetes mellitus complication status: with skin complications Diabetes mellitus complication detail: with foot ulcer Qualified Code(s): E11.621 - Type 2 diabetes mellitus with foot ulcer; L97.509 - Non-pressure chronic ulcer of other part of unspecified foot with unspecified severity; Z79.4 - longterm (current) use of insulin Code(s): E11.9 - Type 2 diabetes mellitus without complications Status: Acute (5) Hypertension: Code(s): I10 - Essential (primary) hypertension Status: Acute (6) Obesity: Qualifiers: Obesity type: due to excess calories Obesity classification: adult class 3 (BMI >= 40) Serious obesity comorbidity presence: unspecified whether serious comorbidity present Body mass index: BMI 40.0-44.9 Qualified Code(s): E66.01 - Morbid (severe) obesity due to excess calories; Z68.41 - Body mass index [BMI] 40.0-44.9, adult Code(s): E66.9 - Obesity, unspecified Status: Acute Plan Diabetic foot Ulcer/Cellulitis of the LT foot Blood cultures NGTD Wound culture pending CT: No evidence for osteomyelitis or abscess. If there is continued concern for osteomyelitis, further evaluation with MRI with contrast recommended. CRP mildly elevated 3.2 Vancomycin and cefepime will deescalate pending culture and sensitivities Leukocytosis improved back to normal IV fluids Glucose control Recommended duration of antibiotic therapy for 7-10 days. Recommend follow-up with Podiatry outpatient may need also referral to Ortho Diabetes Accu-Cheks a.c. HS sliding scale insulin hold oral diabetic medications resume patient's home long-acting Hemoglobin A1c goal less than 7 pending lipid panel pending Diabetic diet consult to dietitian encourage lifestyle modifications and weight loss Optimize Jerson inhibitors and statins. 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 encourage outpatient weight loss clinic BMI . Diet exercise counseling done. consult to dietitian Disposition: Patient discharged back to home for self-care educated on wound care and bandage changes weight-bearing as tolerated patient has follow-up appointment with primary care physician recommend referral to Podiatry. DS: Summary Hospital Course Reason for hospitalization: Cellulitis/diabetic foot ulcer Hospital Course: H&P (Medical Record) Chief Complaint: LT Foot wound
== END 2023-08-23 13:55 | disposition home or self-care (01) | DRG 380 ==
LOC: ANHED 08-21 03:00 → ANH3MEDSUR 08-21 06:33
PROVIDERS: Admitting Provider Internal Medicine; Emergency Provider Physician Assistant; PCP Nurse Practitioner; Visit Provider Nurse Practitioner Family
DX: E11.621 Type 2 diabetes mellitus with foot ulcer (principal); L97.429 Non-pressure chronic ulcer of left heel and midfoot with unspecified severity; L03.116 Cellulitis of left lower limb; D50.9 Iron deficiency anemia, unspecified; E11.40 Type 2 diabetes mellitus with diabetic neuropathy, unspecified; E78.5 Hyperlipidemia, unspecified; E66.01 Morbid (severe) obesity due to excess calories; F41.9 Anxiety disorder, unspecified; F32.A Depression, unspecified; I10 Essential (primary) hypertension; R00.0 Tachycardia, unspecified; Z79.84 Long term (current) use of oral hypoglycemic drugs; Z79.85 Long-term (current) use of injectable non-insulin antidiabetic drugs; Z79.4 Long term (current) use of insulin; Z68.41 Body mass index [BMI] 40.0-44.9, adult; Z87.891 Personal history of nicotine dependence
CPT/HCPCS: 36415; 73701; 80053; 80061; 80202; 82565; 82948; 83036; 83605; 83735; 85025; 85027; 85652; 86140; 87040; 87070; 87205; 93005; 96361; 96365; 96366; 96367; 96375; 96376; 99285; A9270; G0378; J0692; J1650; J1815; J1836; J2270; J3370; J7030; Q9967

== ENCOUNTER 2023-08-31 10:48 | Outpatient (CLI) | payer OTHER, SELFPAY ==
[2023-08-31 12:10] LABS: Alanine Aminotransferase 21 U/L (6-35); Albumin Level 4.8 g/dL (3.5-5.1); Alkaline Phosphatase 67 U/L (38-126); Anion Gap 11 mmol/L (8-16); Aspartate Amino Transferase 18 U/L (14-36); Bilirubin,Total 0.5 mg/dL (0.2-1.3); Blood Urea Nitrogen 8 mg/dL (7-17); Calcium 10.2 mg/dL (8.4-10.2); Carbon Dioxide 24 mmol/L (22-30); Chloride 103 mmol/L (98-107); Cholesterol 134 mg/dL (0-200); Estimated Glomerular Filt Rate > 60; Glucose 129 mg/dL (65-110); HDL Direct 31 mg/dL; Sodium 138 mmol/L (137-145); Triglycerides 260 mg/dL (<150)
[2023-08-31 12:14] LABS: LDL Cholesterol Direct 84 mg/dL
[2023-08-31 12:18] LABS: Potassium 4.3 mmol/L (3.4-5.0)
== END 2023-08-31 10:49 | disposition home or self-care (01) ==
PROVIDERS: PCP Nurse Practitioner; Referring Provider Nurse Practitioner Family; Visit Provider Internal Medicine Cardiovascular Disease
DX: E78.5 Hyperlipidemia, unspecified (principal); E11.9 Type 2 diabetes mellitus without complications; G47.61 Periodic limb movement disorder; Z72.821 Inadequate sleep hygiene
CPT/HCPCS: 36415; 80053; 80061; 82728

== ENCOUNTER 2023-11-04 17:26 | Emergency (ER) | payer OTHER, SELFPAY ==
[2023-11-04 17:39] VITALS: BP 137/88; PULSE 123; RESP 16; TEMP 37.1; O2SAT 99
--- NOTE | 2023-11-04 17:42 | ED.GENADULT ---
HPI - General Adult General Chief complaint: Skin/Abscess/Foreign Body Stated complaint: Open Wound Left Foot Time Seen by Provider: 11/04/23 17:42 Source: patient, RN notes reviewed and old records reviewed Mode of arrival: ambulatory Limitations: no limitations History of Present Illness HPI narrative: 28-year-old female to [facility] for wound check. Pt has a chronic diabetic ulcer that has become increasingly painful, red, swollen and warm to touch. Patient states that she has an appointment with a package winder at the end of the month and that is the soonest she could get in. Patient denies fever, nausea, vomiting, diarrhea, pain radiating into leg. Patient able to tolerate fluids by mouth. Patient in no acute distress. Related Data Home Medications Medication Instructions Recorded Confirmed empagliflozin 25 mg tablet 25 mg PO DAILY 09/04/21 11/04/23 (Jardiance) bupropion HCl 300 mg 24 hr tablet, 300 mg PO DAILY 10/01/21 11/04/23 extended release buspirone 10 mg tablet 30 mg PO BID 11/18/22 11/04/23 cyclobenzaprine 10 mg tablet 10 mg PO ONCE 04/12/23 11/04/23 metformin 500 mg tablet 1,000 mg PO BID 04/12/23 11/04/23 omeprazole magnesium 20 mg 20 mg PO DAILY 04/19/23 11/04/23 tablet,delayed release (Prilosec OTC) niacin 500 mg tablet 1,000 mg PO DAILY 06/03/23 11/04/23 insulin glargine 100 unit/mL (3 35 unit subcut BID 07/13/23 11/04/23 mL) subcutaneous pen (Basaglar KwikPen U-100 Insulin) omega 3-xpu-gyw-fish oil 1,200 mg 4,000 cap PO BID 07/13/23 11/04/23 (144 mg-216 mg) capsule (Fish Oil) semaglutide 0.25 mg or 0.5 mg (2 1 mg subcut WEEKLY 07/13/23 11/04/23 mg/3 mL) subcutaneous pen injector (Ozempic) atomoxetine 60 mg capsule 60 mg PO DAILY 08/21/23 11/04/23 (Strattera) labetalol 200 mg tablet 200 mg PO BID 08/21/23 11/04/23 pregabalin 75 mg capsule 75 mg PO BID 08/21/23 11/04/23 topiramate 200 mg tablet 200 mg PO BID 08/21/23 11/04/23 Allergies Allergy/AdvReac Type Severity Reaction Status Date / Time No Known Allergies Allergy Verified 11/04/23 17:42 Review of Systems Review of Systems: All systems reviewed & are unremarkable except as noted in HPI and below Constitutional: Constitutional: Reports as per HPI and Denies fever(s) Eyes: Eyes: Reports no additional eye complaints ENT: Reports system reviewed and no additional complaints, except as documented Cardiovascular: Cardiovascular: Reports no additional cardiovascular complaints, Denies chest pain and Denies dyspnea Respiratory: Respiratory: Reports no additional respiratory complaints, Denies cough and Denies dyspnea Gastrointestinal: Gastrointestinal: Reports as per HPI, Denies diarrhea, Denies nausea and Denies vomiting Musculoskeletal: Musculoskeletal: Reports no additional musculoskeletal complaints Integumentary/Breasts: Skin/Breast: Reports as per HPI and Reports skin ulcer Neurologic: Reports system reviewed and no additional complaints, except as documented Psychiatric: Psychiatric: Reports no additional psychiatric complaints [facility] Past Medical History Medical History Anxiety Depression Diarrhea Hyperlipidemia Hypertension Leg fracture, left Nausea Osteoarthritis PCOS (polycystic ovarian syndrome) Type II diabetes mellitus Surgical History Surgical History History of musculoskeletal system surgery Lt leg History of tonsillectomy and adenoidectomy Social History Social History Smoking status: Never smoker Second hand tobacco smoke exposure: No Alcohol intake: never Substance use: never Substance use type: does not use Do You Feel Safe in your Home?: Yes Lack of Transportation: No Lack of Food: Never True Current Housing: I Have Housing Concerned About Future Housing: No Difficulty Paying
== END 2023-11-04 18:13 | disposition home or self-care (01) ==
PROVIDERS: Emergency Provider Nurse Practitioner Family; PCP Nurse Practitioner
DX: L03.116 Cellulitis of left lower limb (principal); E11.621 Type 2 diabetes mellitus with foot ulcer; L97.429 Non-pressure chronic ulcer of left heel and midfoot with unspecified severity; Z79.84 Long term (current) use of oral hypoglycemic drugs; Z79.4 Long term (current) use of insulin; F41.9 Anxiety disorder, unspecified; F32.A Depression, unspecified; E78.5 Hyperlipidemia, unspecified; I10 Essential (primary) hypertension; M19.90 Unspecified osteoarthritis, unspecified site; E28.2 Polycystic ovarian syndrome
CPT/HCPCS: 99213; G0463

== ENCOUNTER 2023-12-04 09:03 | Outpatient (CLI) | payer OTHER, SELFPAY ==
--- NOTE | ~2023-12-04 | MR_ITS ---
MRI of the left foot CLINICAL HISTORY: Chronic ulcer, necrosis TECHNIQUE: Axial T1-weighted and T2 fat-sat images, sagittal T1-weighted and STIR images, and coronal T1-weighted and T2 fat-sat images were performed. Following intravenous administration of 20 cc Mult iHance gadolinium, T1-weighted fat-sat imaging was performed in the axial, coronal, and sagittal plan es. FINDINGS: No evidence for bone marrow edema, fracture, or osteomyelitis. There is hyper dorsiflexion at the metatarsophalangeal joints throughout the foot, with mild subluxation. No significant joint ef fusion evident. Lisfranc ligament is intact. Flexor and extensor tendons are intact. No evidence for Garner's neuroma or intermetatarsal bursitis. There is focal irregular low signal intensity at the plantar aspect of the first interspace, which c ould reflect small foreign body versus small amount of soft tissue gas, measuring approximately 8 mm in maximum extent (sagittal images 7 and 8, coronal image 15). There is mild surrounding soft tissue edema in this region. No abscess evident. Visualized plantar fascia is intact. IMPRESSION: No evidence for osteomyelitis. 8 mm suspected foreign body at the plantar aspect of the first interspace, as detailed above, versus possibly small amount of soft tissue gas. There is surrounding nonspecific soft tissue edema, suspici ous for amorphous soft tissue infection. No abscess evident. Hyperdorsiflexion and mild subluxation at the metatarsophalangeal joints throughout the foot. Reviewed, dictated and finalized at [facility]. IMPRESSION: No evidence for osteomyelitis. 8 mm suspected foreign body at the plantar aspect of the first interspace, as d etailed above, versus possibly small amount of soft tissue gas. There is surrou nding nonspecific soft tissue edema, suspicious for amorphous soft tissue infec tion. No abscess evident. Hyperdorsiflexion and mild subluxation at the metatarsophalangeal joints throug hout the foot.
== END 2023-12-04 09:04 | disposition home or self-care (01) ==
LOC: ANHLAB 09:05
PROVIDERS: Nurse Practitioner Family; PCP Nurse Practitioner; Visit Provider Podiatrist Foot & Ankle Surgery
DX: L97.524 Non-pressure chronic ulcer of other part of left foot with necrosis of bone (principal); E11.621 Type 2 diabetes mellitus with foot ulcer
CPT/HCPCS: 36415; 73720; 82728; A9577

== ENCOUNTER 2024-01-26 07:27 | Outpatient (CLI) | payer OTHER, SELFPAY ==
--- NOTE | ~2024-01-26 | NM_ITS ---
EXAMINATION: NM dulce stress w perfusion DATE: 01/26/2024 10:53 INDICATION: Chest pain. TECHNIQUE: Rest images were obtained following intravenous administration of 9.4 mCi Tc99m tetrofosmi n (Myoview). The patient was infused intravenously with Lexiscan (regadenoson). Then, 30 mCi Tc99m te trofosmin (Myoview) was administered intravenously, and stress images were obtained. Data was reconst ructed into short axis and horizontal and vertical long axis SPECT images. Gated SPECT images were al so obtained. COMPARISON: CT abdomen and pelvis 10/31/2020 FINDINGS: There is no definite reversible or fixed perfusion abnormality to suggest ischemia or infar ction. There is no segmental wall motion abnormality. Left ventricular ejection fraction measures > 70%. IMPRESSION: 1. No definite ischemia or infarct. 2. Normal left ventricular ejection fraction measuring >70%. Reviewed, dictated and finalized at location A.
--- NOTE | 2024-01-26 07:29 | ECHO_ITS ---
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 Contrast/Agitated Saline Contrast/Ag. Saline: Definity Amount: 3.00 ml Existing IV Access: Yes Summary 1. Definity contrast administered improved wall motion interpretation. 2. Left ventricular chamber dimension is normal. 3. Left ventricular systolic function is normal, estimated at 55-60%. 4. The left ventricular diastolic function is grade I diastolic dysfunction. 5. E/e' 5 is not elevated. 6. No pulmonary hypertension, estimated pulmonary arterial systolic pressure is 30 mmHg. Left Ventricle E/e' 5 is not elevated. Definity contrast administered improved wall motion interpretation. Left ventricular chamber dimension is normal. Left ventricular systolic function is normal, estimated at 55-60%. The left ventricular diastolic function is grade I diastolic dysfunction. Right Ventricle Right ventricular chamber dimension is normal. Right ventricular systolic function is normal. Left Atria Left atrial chamber dimension is normal. Right Atria Right atrial chamber dimension is normal. Atrial Septum Agitated saline injection with and without valsalva maneuver opacified right side cardiac chambers without shunt to left side cardiac chambers. Intact interatrial septum visualized by 2D and agitated saline imaging. Aortic Valve The aortic valve is trileaflet. There is no aortic valve stenosis. There is no aortic valve regurgitation. Pulmonic Valve There is no pulmonic regurgitation. Mitral Valve There is no mitral valve stenosis. There is no mitral valve regurgitation. Tricuspid Valve There is no tricuspid valve regurgitation. No pulmonary hypertension, estimated pulmonary arterial systolic pressure is 30 mmHg. Pericardium/Pleural There is no pericardial effusion. Inferior Vena Cava Normal inferior vena cava with >50% collapse upon inspiration consistent with normal right atrial pressure, 5 mmHg. Aorta The aortic root size at the sinus of Valsalva is normal. Left Ventricular Outflow Tract Name Value Normal LVOT 2D LVOT Diameter 1.9 cm LVOT Doppler LVOT Peak Gradient 5 mmHg LVOT Mean Gradient 3 mmHg LVOT VTI 15 cm LVOT VTI/AV VTI Ratio 0.9 LVOT Stroke Volume 43 ml LVOT CO 4.5 l/min
--- NOTE | 2024-01-26 07:32 | EST_ITS ---
Patient Info Name: Lynne Cruz Age: 28 years : 1995 Gender: Female Ht: 67 in Wt: 260 lbs BSA: 2.42 m2 HR: 106 bpm BP: 127 / 100 mmHg Heart Rhythm: Sinus Rhythm Exam Date: 01/26/2024 9:50 AM Exam Location: Echo Lab Patient Status: Outpatient Admit Date: 01/26/2024 Staff Ordering Physician: Ronni Lucio DO Attending Provider: Ronni Lucio DO Exercise Technologist: Clarice Mandel CT Exercise Physician: Ronni Lucio DO Exam Type: CA stress dulce w NM Study Info Indications R07.89 - Other chest pain A regadenoson stress test was performed. Summary 1. 1. Negative lexiscan stress test for ischemic ST changes by ECG criteria. 2. 2. Stable hemodynamics throughout the test. 3. 3. Nuclear scan to follow and will be reported separately. Please correlate with it. 4. 4. Patient informed of the above results. Protocol: Lexiscan Stress ECG Details Stage: REST Duration (min): 1 min : 2 sec HR (bpm): 107 SBP (mmHg): 127 DBP (mmHg): 100 Stage: REST Duration (min): 10 min : 54 sec HR (bpm): 114 SBP (mmHg): 127 DBP (mmHg): 100 Stage: STAGE 1 Duration (min): 1 min : 0 sec HR (bpm): 130 SBP (mmHg): 154 DBP (mmHg): 51 Stage: RECOVERY Duration (min): 1 min : 0 sec HR (bpm): 137 SBP (mmHg): 154 DBP (mmHg): 51 Stage: RECOVERY Duration (min): 2 min : 0 sec HR (bpm): 137 SBP (mmHg): 154 DBP (mmHg): 51 Stage: RECOVERY Duration (min): 3 min : 0 sec HR (bpm): 133 SBP (mmHg): 168 DBP (mmHg): 101 Stage: RECOVERY Duration (min): 4 min : 0 sec HR (bpm): 135 SBP (mmHg): 168 DBP (mmHg): 101 Stage: RECOVERY Duration (min): 5 min : 0 sec HR (bpm): 127 SBP (mmHg): 168 DBP (mmHg): 101 Stage: RECOVERY Duration (min): 5 min : 24 sec HR (bpm): 126 SBP (mmHg): 168 DBP (mmHg): 101 Rest HR: 114 bpm Peak HR: 138 bpm Rest Sys BP: 127 mmHg Peak Sys BP: 168 mmHg Max Pred HR: 193 bpm % Max Pred HR: 72 % Target HR: 164 bpm Max RPP: 23,184 bpm*mmHg Termination Reason: Completed protocol Cardiac Symptoms: Chest pain, Shortness of breath, Lightheaded/pre-syncope Total Time: 1 min : 0 sec Rest Molina BP: 100 mmHg Peak Molina BP: 101 mmHg Total Dose: 0.4 mg Resting ECG Sinus tachycardia. Stress ECG No ST changes. Arrhythmias None. Report Signatures
--- NOTE | 2024-01-26 10:08 | IVDEFINITY ---
Prior to administration of IV Definity the patient was educated on the risks and benefits of the imaging enhancing agent including potential adverse side effects. The patient verbalized understanding. Allergies were verified. No exclusion criteria were identified and at least one of the following inclusion criteria were met: 1) physician request, 2) patient technically difficult to image (per the [place] [employer]ocardi[employer] guidelines of two or more segments not discernable within the apical view), or 3) questionable left ventricular function. ?
== END 2024-01-26 07:28 | disposition home or self-care (01) ==
LOC: ANHCARD 07:28
PROVIDERS: PCP Nurse Practitioner; Visit Provider Internal Medicine Cardiovascular Disease
DX: R07.89 Other chest pain (principal); G47.34 Idiopathic sleep related nonobstructive alveolar hypoventilation
CPT/HCPCS: 78452; 93017; 96375; A9502; C8929; J2785

== ENCOUNTER 2024-03-01 18:13 | Emergency (ER) | payer OTHER, SELFPAY ==
[2024-03-01 18:19] VITALS: BP 123/86; PULSE 120; RESP 16; TEMP 36.4; O2SAT 100
--- NOTE | 2024-03-01 18:21 | ED.NAVMDI ---
HPI - Nausea/Vomiting/Diarrhea General Chief complaint: Nausea/Vomiting/Diarrhea Stated complaint: NAUSEA/DIARRHEA/BURNING IN CHEST & STOMACH Time Seen by Provider: 03/01/24 18:25 Source: patient and family Mode of arrival: ambulatory Limitations: no limitations History of Present Illness HPI Narrative: Lynne is a 28-year-old female patient presenting to the clinic today with complaints of nausea, diarrhea, vomiting, and acid reflux symptoms. She reports that the symptoms have been going on approximately 1 week. Has had occasional diarrhea and nausea and vomiting throughout the week. States she has some burning in her stomach at this time. Denies any chest pain or shortness of breath. Denies vomiting blood or having any blood in her stool. History of GERD in the past. No fever, chills, or body aches. Denies any urinary symptoms. Related Data Home Medications Medication Instructions Recorded Confirmed empagliflozin 25 mg tablet 25 mg PO DAILY 09/04/21 02/09/24 (Jardiance) bupropion HCl 300 mg 24 hr tablet, 300 mg PO DAILY 10/01/21 02/09/24 extended release buspirone 10 mg tablet 30 mg PO BID 11/18/22 02/09/24 cyclobenzaprine 10 mg tablet 10 mg PO ONCE 04/12/23 02/09/24 metformin 500 mg tablet 1,000 mg PO BID 04/12/23 02/09/24 omeprazole magnesium 20 mg 20 mg PO DAILY 04/19/23 02/09/24 tablet,delayed release (Prilosec OTC) niacin 500 mg tablet 1,000 mg PO DAILY 06/03/23 02/09/24 semaglutide 0.25 mg or 0.5 mg (2 1 mg subcut WEEKLY 07/13/23 02/09/24 mg/3 mL) subcutaneous pen injector (Ozempic) atomoxetine 60 mg capsule 60 mg PO DAILY 08/21/23 02/09/24 (Strattera) labetalol 200 mg tablet 200 mg PO BID 08/21/23 02/09/24 pregabalin 75 mg capsule 75 mg PO BID 08/21/23 02/09/24 topiramate 200 mg tablet 200 mg PO BID 08/21/23 02/09/24 desvenlafaxine succinate 25 mg 25 mg PO DAILY 12/06/23 02/09/24 tablet,extended release 24 hr (Pristiq) omega 9-afx-pmd-fish oil 1,200 mg 6,000 cap PO BID 12/06/23 02/09/24 (144 mg-216 mg) capsule (Fish Oil) insulin glargine 100 unit/mL (3 35 unit subcut BID 02/09/24 02/09/24 mL) subcutaneous pen (Lantus Solostar U-100 Insulin) Allergies Allergy/AdvReac Type Severity Reaction Status Date / Time No Known Allergies Allergy Verified 03/01/24 18:29 Review of Systems Review of Systems: Pertinent positives per HPI. Patient denies any fever, chills, rash, headache, visual changes, dizziness, cough, runny nose, sore throat, shortness of breath, chest pain, palpitations, constipation, or any urinary issues. [facility] Past Medical History Medical History Anxiety Depression Diarrhea Hyperlipidemia Hypertension Leg fracture, left Nausea Osteoarthritis PCOS (polycystic ovarian syndrome) Type II diabetes mellitus Surgical History Surgical History History of musculoskeletal system surgery Lt leg History of tonsillectomy and adenoidectomy Social History Social History Smoking status: Never smoker Second hand tobacco smoke exposure: No Alcohol intake: never Substance use: never Substance use type: does not use Do You Feel Safe in your Home?: Yes Lack of Transportation: No Lack of Food: Never True Current Housing: I Have Housing Concerned About Future Housing: No Difficulty Paying Gas/Electric Bills: No Difficulty Paying for Meds: No Currently Unemployed: No Education: High School Diploma/GED Difficulty w/ Childcare or Family Care: No Living arrangements: with friend(s) Occupation/Education: unemployed Gender identity (if verbalized by the patient): Female Spiritual care concerns: No Comments At the time of my signature, I reviewed and agree with the nursing past medical, surgical, social, and family history. There is no relevant family history per
== END 2024-03-01 18:38 | disposition home or self-care (01) ==
PROVIDERS: Emergency Provider Nurse Practitioner Family; PCP Nurse Practitioner
DX: K52.9 Noninfective gastroenteritis and colitis, unspecified (principal); K21.9 Gastro-esophageal reflux disease without esophagitis; E78.5 Hyperlipidemia, unspecified; I10 Essential (primary) hypertension; M19.90 Unspecified osteoarthritis, unspecified site; E11.9 Type 2 diabetes mellitus without complications; Z79.4 Long term (current) use of insulin; Z79.84 Long term (current) use of oral hypoglycemic drugs; E28.2 Polycystic ovarian syndrome
CPT/HCPCS: 99213; G0463

== ENCOUNTER 2025-03-28 10:53 | Outpatient (CLI) | payer OTHER, SELFPAY ==
--- OUTSIDE RECORDS SUMMARY | 2025-03-28 11:44 | XMS_ITS | Encounter Summary ---
Author Organization [facility] Address [address] [facility] [place] [address] Phone Care Team Providers Care Clarity Developer Name Role Phone Marium Dixon MD Unavailable Curtis Hernandez APRN, ELECTRIC METER INSPECTOR Primary Care Provid er Reason for Visit * Reason Comments Medication Refill Encounter Details Date Type Department Care Team (Late st Contact Info) Description 08/25/2021 Refill [facility] - Endocrinology - [place] [address] [place] [address] Marium Dixon MD [address] [phone] Medication Refill Social History Tobacco Use Types Packs/Day Years Used Date Smoking Tobacco: Never Smokeless Tobacco: Never Alcohol Use Standard Drinks/Week Comments No 0 (1 standard drink = 0.6 oz pur e alcohol) Sexually Active Control Partners Comments Yes Male Comments No Sex and Gender Information Value Date Recorded Sex Assigned at Not on file Legal Sex Female 11:33 AM CDT Gender Identity Not on file Sexual Orientation Not on file Occupation Industry Job Start Date Job End Date unemployed Not on file Not on file Not on file documented as of this encounter Miscellaneous Notes * Telephone Encounter - Mary Hadley, RN - 08/25/2021 1:01 PM [employer] Requested Prescriptions Pending Prescriptions Disp Refills ??? labetalol (NORMODYNE) 100 MG Tablet [Pharmacy Med Name: Labetalol HCl 100MG TABS] 60 Tablet Sig: TAKE 1 TABLET BY MOUTH TWICE A DAY Next appt: 09/16/2021 [employer] documented in this encounter Plan of Treatment Upcoming Encounters Date Type Department Care Team (Late st Contact Info) Description 06/01/2025 11:00 AM [employer] Office Visit [facility] - Endocrinology - [place] [address] [place] [id number] Marium Dixon MD [address] [id number] documented as of this encounter Visit Diagnoses Not on filedocumented in this encounter Care Teams Clarity Developer Relationship Specialty Start Date End Date Curtis Hernandez APRN, WOOD [address] [place] [phone] PCP - General Advanced Practice Nurse 06/11/21 Marium Dixon MD [address] [place] [phone] Consulting Physician Endocrinology 07/16/20 documented as of this encounter
--- OUTSIDE RECORDS SUMMARY | 2025-03-28 11:44 | XMS_ITS | Clinical Summary ---
Author Organization [facility] [address] Address [address] [place] [id number] Care Team Providers Care Central Supply Tech Name Role Phone Curtis Hernandez NP Primary Care Provider [phone] Donita Conte DPM Unavailable [phone] Allergies No known active allergies Medications metFORMIN (GLUCOPHAGE) 500 mg tablet Take 2 tablets (1,000 mg total) by mouth 2 (two) times a day with meals 2 Active labetaloL (NORMODYNE,HARRIS DATE) 100 mg tablet Take 2 tablets (200 mg total) by mouth 2 (two) times a day 2 Active BASAGLAR 100 unit/mL (3 mL) pen for injection Inject 35 Units under the skin 2 (two) times a day 2 Active Jardiance 25 mg tablet 2 Active buPROPion XL (WELLBUTRIN XL) 150 mg 24 hr tablet 2 tablets (300 mg total) daily 0 Active busPIRone (BUSPAR) 10 mg tablet Take 3 tablets (30 mg total) by mouth 2 (two) times a day 2 Active Strattera 25 mg capsule Take 1 capsule (25 mg total) by mouth daily 3 Active desvenlafaxine ER (Pristiq) 50 mg 24 hr tablet daily 3 Active cyclobenzaprine (FLEXERIL) 10 mg tablet TAKE 1 TABLET BY MOUTH AT BEDTIME NEEDED for 30 Active lisinopriL (PRINIVIL,ZESTR IL) 5 mg tablet Take 1 tablet (5 mg total) by mouth daily Active topiramate (TOPAMAX) 200 mg tablet Take 1 tablet (200 mg total) by mouth 2 (two) times a day Active atorvastatin (LIPITOR) 40 mg tablet Take 1 tablet (40 mg total) by mouth daily 4 Active OneTouch Verio test strips strip 4 Active FeroSuL 325 mg (65 mg iron) tablet Take 1 tablet (325 mg total) by mouth daily with breakfast 4 Active hydrOXYzine (VISTARIL) 25 mg capsule Take 1 capsule (25 mg total) by mouth as needed 4 Active OneTouch Delica Plus Lancet 33 gauge misc 3 Active TRUEplus Pen Needle 32 gauge x /32 needle 4 Active pregabalin (LYRICA) 75 mg capsule Take 1 capsule (75 mg total) by mouth 2 (two) times a day 4 Active Ozempic 1 mg/dose (4 mg/3 mL) pen injector injection Inject 2 mg under the skin once a week 4 Active cholecalciferol , vitamin D3, 1,000 unit tablet,chewable Take by mouth Active HYDROcodone-ugo taminophen (NORCO) 5-325 mg per tabletIndicatio ns:Pain Take 1 tablet by mouth every 4 (four) hours as needed for pain 30 tablet 4 Active Active Problems Problem Noted Date Diagnosed Date Metatarsalgia of left foot 12/24/2023 Ulcer of toe of left foot, with necrosis of musc le 12/24/2023 Diabetic foot ulcer with osteomyelitis 4 Palpitations 02/15/2023 Abscess of right groin 10/10/2018 Anxiety 10/10/2018 Atypical chest pain 10/10/2018 Bipolar 2 disorder 10/10/2018 Hyponatremia 10/10/2018 IBD (inflammatory bowel disease) 10/10/2018 Type 2 diabetes mellitus with hyperglycemia 09/26 Vitamin D deficiency 10/10/2018 Cephalalgia 08/13/2015 Memory impairment 08/13/2015 Hypertension 06/01/2013 Polycystic ovaries 10/14/2012 Hyperlipidemia 12/01/2010 Anaclitic depression 11/24/2010 Hypercholesterolemia 08/26/2010 Type 2 diabetes mellitus 03/28/2010 Abnormal weight gain 05/21/2008 Surgical History Surgery Date Site/Laterality Comments GA TONSILLECTOMY & ADENOIDEC ESTHER <AGE 12 Tonsillectomy With Adenoidectomy - (Added by TW Conv) ARM SURGERY Right Medical History Medical History Date Comments Impaired fasting glucose Impaire d fasting glucose - (Added by TW Conv) Personal history of other en docrine, nutritional and metabolic disease History of hypothyro idism - (Added by TW Conv) Hypertension POTS (postural orthostatic t achycardia syndrome) Irritable bowel syndrome Type 2 diabetes mellitus Headache Depression Bipolar disorder Family History Medical History Relation Name Comments Depression Father Family history of depression - (Added by TW Conv) Heart attack Father Family history of myocardial infarction - (Added by TW Conv) Heart disease Father Family history of cardiac disorder - (Added by TW Conv) Relation Name Status Comments Father Social History Tobacco Use Types Packs/Day Years Used Date Smoking Tobacco: Former Smokeless Tobacco: Never Tobacco Cessation:Counseling Given: Not Answered AUDIT-C Answer Date Recorded Q1: How often do you have a drink containing alcohol? Never 12/24/2023 Q2: How many drinks containi ng alcohol do you have on a typical day when you are drinking? Patient does not drink Q3: How often do you have si x or more drinks on one occasion? Never 12/24/2023 Personal Safety Answer Date Recorded Have you ever been in or are you currently in a harmful physical or emotional relationship or is someone making you feel afraid or unsafe? Denies 12/31/2023 Comments No Sex and Gender Information Value Date Recorded Sex Assigned at Not on file Legal Sex Female 12:53 PM MOTOR COACH CHAUFFEUR Gender Identity Not on file Sexual Orientation Not on file Obstetrics History Last Filed Vital Signs Vital Sign Reading Time Taken Comments Blood Pressure 124/83 12/31/2023 2:55 PM CDT Pulse 104 12/31/2023 2:55 PM CDT Temperature 36.2 C (97.2 F) 12/31/2023 2:55 PM CDT Respiratory Rate 18 12/31/2023 2:55 PM CDT Oxygen Saturation 99% 12/31/2023 2:55 PM CDT Inhaled Oxygen Concentration - - Weight 121.5 kg (267 lb 13.7 oz) 2023 11:30 AM CDT Height 170.2 cm (5' 7) 12/31/2023 11:3 0 AM CDT Body Mass Index 41.95 12/31/2023 11:30 AM CDT Plan of Treatment Health Maintenance Due Date Last Done Comments Albumin Creatinine Ratio, Urine 1996 Cervical Cancer Screening 1996 Depression Screening 1996 Hemoglobin A1C 1996 Hepatitis C Screening 1996 Dilated Eye Exam 1996 Foot Exam 1996 Varicella Vaccines (1 of 2 - 13+ 2-dose series) 2009 Regular Well Visit/Exam 18-64 2014 Lipid Panel 05/11/2015 05/11/2014, 02/09/2014 Pneumococcal vaccine <65 (1 of 2 - PCV) 2015 HPV Vaccines (1 - 3-dose SCD M series) 2023 eGFR 04/09/2024 04/09/2023 Influenza Vaccine (#1) 2025 3, 04/09/2021, 05/01/2019, Additional history exists DTaP/Tdap/Td Vaccine (3 - Td or Tdap) 06/17/2025 06/17/2015, 01/28/2009 Hepatitis B Screening Completed 11/08/2013 Procedures Procedure Name Priority Date/Time Associated Diagnosis Comments EGFR STAT 04/09/2023 10:10 AM CDT SERUM LIPID PANEL Routine 05/11/2014 5:0 6 PM MOTOR COACH CHAUFFEUR from Last 3 Months or Most Recently Relevant to Health Maintenance Results * eGFR (04/09/2023 10:10 AM CDT) eGFR >90 90 - 130 mL/min/1. 73 m2 Comment: Interpretive Data Reference Interval Normal >/= 90 mL/min/1.73m2 Mildly decreased* 60 - 89 mL/min/1.73m2 Mildly to moderately decreased 45 - 59 mL/min/1.73m2 Moderately to severely decreased 30 - 44 mL/min/1.73m2 Severely decreased 15 - 29 mL/min/1.73m2 Kidney Failure < 15 mL/min/1.73m2 *Relative to young adult level Estimated glomerular filtration rate is determined by the 2020 CKD-EPI equation recommended by the National Kidney Foundation (A Unifying Approach to GFR Estimation: Recommendations of the NKF-ASK Task Force on Reassessing the Inclusion of Race in Diagnosing Kidney Disease, JASN 202). The CKD-EPI equation should not be used for patients with unstable renal function and has not been validated in children and those over 70. Current interpretive data was last reviewed 2021. Blood 04/09/2023 10:1 0 AM CDT 04/09/2023 10:22 AM CDT us Deb Shi [facility] BLOOD ORDERABLES Final Result [facility] Department [place] [address] * (ABNORMAL) Serum lipid panel (05/11/2014 5:06 PM MOTOR COACH CHAUFFEUR) Cholesterol 225(H) 0 - 200 mg/dl HISTORICAL RESULTS Comment: Interpretive Data Desirable: <200 mg/dL Borderline high: 200-239 mg/dL High: >240 mg/dL Literature Reference: National Cholesterol Education Program (NCEP) Expert Panel on Detection, Evaluation, and Treatment of High Blood Cholesterol in Adults (Adult Treatment Panel III). Circulation 2004; 110:227. Current interpretive data was last revised on 2005. Triglycerides 992(H) 0 - 150 mg/dl HISTORICAL RESULTS Comment: Interpretive Data Desirable: < 150 mg/dL Borderline High: 150 - 199 mg/dL High: > 200 mg/dL Literature Reference: See Cholesterol Current interpretive data was last revised on 06. HDL 8(L) 40 - 199 mg/dl HISTORICAL RESULTS Comment: Interpretive Data Less than 40 mg/dL - low; A major risk factor for heart disease. Greater than or equal to 60 mg/dL - High; considered protective of heart disease. Literature Reference: See Cholesterol Current interpretive data was last revised on 2008. LDL N/A 0 - 129 mg/dl HISTORICAL RESULTS Comment: Cannot be calculated; triglycerides above 400 mg/dL. Cannot be calculated; triglycerides above 400 mg/dL. Interpretive Data Optimal: < 100 mg/dL Near Optimal: 100 - 129 mg/dL Borderline High: 130 - 159 mg/dL High: > 160 mg/dL Literature Reference: See Cholesterol Current interpretive data was last revised on 06. Non-HDL cholesterol, calculated 217 mg/dl HISTORICAL RESULTS Comment: Interpretive Data When triglycerides are >200 mg/dL, non-HDL C is a secondary target of therapy, with a goal 30 mg/dL higher than the identified LDL-C goal. Reference: See Cholesterol Reference. Current interpretive data was last revised 2012. Serum 05/11/2014 5:06 PM MOTOR COACH CHAUFFEUR us Kennedi Atwood MD LAB BLOOD ORDERABLES Final R esult HISTORICAL RESULTS from Last 3 Months or Most Recently Relevant to Health Maintenance Insurance [facility] Care Teams Central Supply Tech Relationship Specialty Start Date End Date Curtis Hernandez NP [address] [place] [id number] PCP - General Pain Management 03/29/23 Donita Conte DPM [address] [place] [id number] Consulting Physician Foot and Ankle Surg 12/31/23
--- OUTSIDE RECORDS SUMMARY | 2025-03-28 11:44 | XMS_ITS | Clinical Summary ---
Author Organization [facility] Address [address] [address] Phone Care Team Providers Care Customs Import Specialist Name Role Phone Marium Dixon MD Unavailable Curtis Hernandez APRN, EMERGENCY VEHICLE OPERATIONS INSTRUCTOR Primary Care Provid er Allergies No known active allergies Medications [facility] VITAMIN B12 1000 MCG Tablet Take 1,000 mcg by mouth daily. 5 04/26/20 17 Active fenofibrate micronized (LOFIBRA) 200 MG Capsule Take 200 mg by mouth daily. 05/31/20 17 Active FLUoxetine (PROZAC) 20 MG Capsule Take 60 mg by mouth daily. 06/08/20 17 Active hydrOXYzine (VISTARIL) 25 MG Capsule 25 mg 3 times daily as needed. 06/08/20 17 Active lamoTRIgine (LAMICTAL) 25 MG Tablet Take 50 mg by mouth 2 times daily. 06/08/20 17 Active busPIRone (BUSPAR) 10 MG Tablet 30 mg 2 times daily. 0 03/15/20 19 Active traZODone (DESYREL) 50 MG Tablet TAKE 1/2 TO 1 TABLET AT BEDTIME NEEDED ORALLY FOR 30 DAYS 0 03/15/20 19 Active cloNIDine (CATAPRES) 0.2 MG Tablet 05/15/20 19 Active busPIRone (BUSPAR) 5 MG Tablet 05/09/20 19 Active atorvastatin (LIPITOR) 40 MG Tablet 06/14/20 19 Active lamoTRIgine (LAMICTAL) 100 MG Tablet 0 04/11/20 19 Active buPROPion (WELLBUTRIN) 150 MG XL tablet 300 mg daily. 10/02/19 20 Active Blood Glucose Monitoring Suppl (Nuenz) w/Device Kit 1 Kit by Does not apply route daily. Use to test blood glucose 2x daily. 1 Kit 07/08/19 21 Active labetalol (NORMODYNE) 100 MG Tablet TAKE 1 TABLET BY MOUTH TWICE A DAY 180 Tablet 08/25/19 22 Active Additional Information Patient taking differently: 100 mg 2 TIMES DAILY, Reported on 03/02/2025 methylPREDNISol one (MEDROL DOSPACK) 4 MG Tablet Therapy Pack See product package insert for dosing schedule 21 Tablet 01/12/20 22 Active Additional Information Patient not taking.Reported on 03/02/2025 naproxen (NAPROSYN) 500 MG Tablet Take 1 Tablet by mouth 2 times daily as needed for Mild or more severe pain. 20 Tablet 01/12/20 22 Active Additional Information Patient not taking.Reported on 03/02/2025 tiZANidine (ZANAFLEX) 4 MG Tablet 01/29/20 22 Active Topiramate 50 MG Tablet 200 mg daily. 01/30/20 22 Active topiramate (TOPAMAX) 25 MG Tablet 25 mg. 05/06/20 22 Active Latuda 20 MG Tablet 08/12/19 23 Active Cholecalciferol 16241 UNIT Capsule 07/21/19 23 Active cholestyramine (QUESTRAN) 4 GM Pack Active ondansetron (ZOFRAN-ODT) 4 MG TABLET DISPERSIBLE 07/29/19 23 Active lisinopril-hydr oCHLOROthiazide (PRINZIDE, ZESTORETIC) 10-12.5 MG Tablet Take 1 Tablet by mouth daily. 90 Tablet 1 01/12/20 23 Active Additional Information Patient not taking.Reported on 03/02/2025 pravastatin (PRAVACHOL) 10 MG Tablet 10 mg. 02/02/20 23 Active lisinopril (PRINIVIL, ZESTRIL) 5 MG Tablet Take 5 mg by mouth. Active Vitamin D3 (Vitamin D, Cholecalciferol ,) 1000 UNIT Tablet TAKE 1 TABLET BY MOUTH DAILY for 30 Active Ferrous Sulfate (Iron) 325 (65 Fe) MG Tablet Take by mouth. A ctive fenofibrate 160 MG Tablet Take 160 mg by mouth daily. Active Paliperidone (Invega) 1.5 MG TABLET SR 24 HR Take 5 mg by mouth. Active fish oil-omega-3 fatty acids ([place]-3 Fish Oil) 1000 MG Capsule Take 6,000 mg by mouth 2 times daily. Active niacin 500 MG Tablet Take 500 mg by mouth daily. Active OneTouch Delica Lancets 33G Misc 1 Lancet . by Does not apply route 2 times daily. Test blood glucose 2x daily. 200 Lancet . 3 12/14/19 24 Active propranolol (INDERAL) 10 MG Tablet Take 10 mg by mouth 2 times daily. Active Glucose Blood (OneTouch Verio) Strip Test blood glucose 2x daily 200 Strip 3 06/14/20 24 Active Lancets (OneTouch Delica Plus Kczhlo27U) Misc USE TO TEST BLOOD SUGAR TWICE A DAY 200 Each 3 06/14/20 24 Active Insulin Pen Needle (TechLite Pen Napoleon) 32G X 4 MM Misc Use 2x daily. 200 Each 3 06/14/20 24 Active insulin glargine (Lantus SoloStar) 100 UNIT/ML Solution Pen-injector 20 Units by Subcutaneous route 2 times daily. 45 mL 1 06/14/20 24 Active Lisdexamfetamin e Dimesylate (Vyvanse) 50 MG Capsule Take 50 mg by mouth daily. Active rOPINIRole (REQUIP) 0.5 MG Tablet Take 0.5 mg by mouth 3 times daily. Active Continuous Glucose Early Childhood Worker (Dexcom G7 Early Childhood Worker) Device Check blood glucose before each meal and at bedtime 1 Each 09/13/19 25 Active metFORMIN (GLUCOPHAGE) 500 MG Tablet Take 2 Tablets by mouth 2 times daily (with meals). 360 Tablet 1 10/24/19 25 Active empagliflozin (Jardiance) 25 MG Tablet Take 1 Tablet by mouth daily. 90 Tablet 1 10/24/19 25 Active Continuous Glucose Sensor (Dexcom G7 Sensor) Misc USE DIRECTED. CHANGE EVERY 10 DAYS 9 Each 02/15/20 25 Active amphetamine-dex troamphetamine (Adderall) 5 MG Tablet Take 5 mg by mouth daily. Active Tirzepatide (Mounjaro) 10 MG/0.5ML Solution Auto-injector 10 mg by Subcutaneous route once a week. 6 mL 03/02/20 25 Active Tirzepatide (Mounjaro) 7.5 MG/0.5ML Solution Auto-injector INJECT 7.5MG SUBCUTANEOUSLY ONCE WEEKLY 6 mL 1 09/19/19 25 025 Discontin ued(Dose adjustmen t) Active Problems Problem Noted Date Diagnosed Date Type 2 diabetes mellitus wit h hyperglycemia, with long-term current use of insulin 04/26/2019 Type 2 diabetes mellitus with hyperglycemia 09/26 Abscess of right groin 10/10/2018 HTN (hypertension) 10/10/2018 IBD (inflammatory bowel disease) 10/10/2018 Hyperlipidemia 10/10/2018 Bipolar 2 disorder 10/10/2018 Anxiety 10/10/2018 Atypical chest pain 10/10/2018 Hyponatremia 10/10/2018 Sepsis due to undetermined organism 10/10/2018 PCOS (polycystic ovarian syndrome) 10/10/2018 Class 3 severe obesity due t o excess calories with serious comorbidity and body mass index (BMI) of 40.0 to 44.9 in adult 10/10/2018 Vitamin D deficiency 10/10/2018 Encounters Date Type Department Care Team Description 03/02/2025 3:00 PM CDT Telemedicine [facility] Endocrinology [facility] [address] [place] [address] Marium Dixon MD Type 2 diabetes mellitus with hyperglycemia, with long-term current use of insulin (HCC) (Primary Dx); Insulin dose changed (HCC); Hypoglycemia; Medication dose increased; Overweight 03/02/2025 Travel 02/14/20[facility] [address] [place] [address] Marium Dixon MD Medication Refill from Last 3 Months Immunizations Immunization Administration Dates Next Due Hepatitis A And Hepatitis B Vaccine 11/08/2013 Hepatitis A Vaccine 11/25/2013 Influenza Vaccine 03/30/2014 Influenza Vaccine, Quadrivalent, PF 05/28,04/09/2021,05/01/2019,10/12,04/05/2015 Influenza, Seasonal, Injecta ble, Undefined 04/18/2013,05/09/2012,04/30/2011 Meningococcal C Conjugate Vaccine 01/28/2009 TDAP Vaccine 06/17/2015,01/28/2009 Typhoid, ViCPs 11/08/2013 Family History Medical History Relation Name Comments Heart Attack Father Colon Cancer Maternal Grandmother Crohn's Disease Maternal Grandmother Relation Name Status Comments Father Alive Maternal Grandmother Mother Alive Social History Tobacco Use Types Packs/Day Years Used Date Smoking Tobacco: Never Smokeless Tobacco: Never Tobacco Cessation:Counseling Given: Not Answered Alcohol Use Standard Drinks/Week Comments No 0 [...] file Not on file Not on file Last Filed Vital Signs Vital Sign Reading Time Taken Comments Blood Pressure 126/76 09/12/2024 2:21 PM CDT Pulse 71 09/12/2024 2:21 PM CDT Temperature 36.4 C (97.5 F) 09/12/2024 2:21 PM CDT Respiratory Rate 22 09/12/2024 2:21 PM CDT Oxygen Saturation 99% 09/12/2024 2:21 PM CDT Inhaled Oxygen Concentration - - Weight 85.1 kg (187 lb 9.6 oz) 09/12/2024 2:21 P M CDT Height 170.2 cm (5' 7) 06/14/2024 2:27 PM TERRITORY SUPERVISOR Body Mass Index 29.38 06/14/2024 2:27 PM TERRITORY SUPERVISOR Plan of Treatment Upcoming Encounters Date Type Department Care Team (Late st Contact Info) Description 06/01/2025 11:00 AM TERRITORY SUPERVISOR Office Visit [facility] - [place] [address] [place] [phone] Marium Dixon MD [address] [place] [address] [place] [phone] Health Maintenance Due Date Last Done Comments Hepatitis C Virus (HCV) Screening 1996 Hepatitis B Immunization (2 of 3 - 3-dose series) 12/06/2013 11/08/2013 Pneumococcal Immunization Combined (1 of 2 - PCV) 2015 Pap Smear 2017 Human Papillomavirus (HPV) Immunization (1 - 3-dose SCDM series) 2023 Influenza Immunization (#1) 02/26/202505/28, 04/09/2021, 05/01/2019, Additional history exists Diabetes: Hemoglobin A1c 03/15/2025 025, 06/14/2024, 03/15/2024, Additional history exists Diabetes: Nephropathy Screening 06/10/2025 06/10/2024, 06/10/2024, 03/12/2023, Additional history exists Diabetes: Eye Exam 06/14/2025 06/14/2024, 06/14/2024 Td Immunization Every 10 Years (Adults With 1 Tdap) 06/17/2025 06/17/2015, 01/28/2009 Diabetes: Foot Exam 09/12/2025 09/12/2024, Respiratory Syncytial Virus (RSV) Immunization (Adult) (1 - 1-dose 75+ series) 2071 DTaP/Tdap/Td Immunization Discontinued 06/17/2015, 08/2008 SARS-COV-2 Immunization Completed 05/01/2024 Meningococcal Immunization (ACWY) Aged Out No longer eligible based on patient's age to complete this topic Rotavirus Immunization Aged Out No lo nger eligible based on patient's age to complete this topic Procedures Procedure Name Priority Date/Time Associated Diagnosis Comments POCT GLYCOSYLATED HEMOGLOBIN Routine 09/12/2024 2:38 PM CDT Type 2 diabetes mellitus with hyperglycemia, with long-term current use of insulin (HCC) DIABETIC BILATERAL RETINAL IMAGING WITH COMPUTERIZED INTERPRETATION Routine 06/14/2024 3:13 PM TERRITORY SUPERVISOR Type 2 diabetes mellitus with hyperglycemia, with long-term current use of insulin (HCC) UR MICROALBUMIN/CREATININE RATIO RANDOM Routine 06/10/2024 10:02 AM TERRITORY SUPERVISOR Type 2 diabetes mellitus with hyperglycemia, with long-term current use of insulin (HCC) from Last 3 Months or Most Recently Relevant to Health Maintenance Results * POCT GLYCOSYLATED HEMOGLOBIN (09/12/2024 2:38 PM CDT) Pathologist [facility] HGB-A1C 5.0 4 - 6 % Blood 09/12/2024 2:38 PM CDT us Marium Dixon MD POINT OF CARE TESTING (MANUAL) F inal Result * DIABETIC BILATERAL RETINAL IMAGING WITH COMPUTERIZED INTERPRETATION (06/14/2024 3:13 PM TERRITORY SUPERVISOR) [facility] DIABETIC BILATERAL DIGITAL RETINAL IMAGING No Diabetic Retinopathy Detected: ETDRS level 20 or lower and no Diabetic Macular Edema [facility]ITAL DI[facility]NOSTICS Comment: Next Steps: Retest in 12 months IDx Submission ID: [id number] Results were produced by a system that provides an artificial intelligence (AI) interpretation A positive result indicates a high risk of diabetic retinopathy with a severity of ETDRS level 35 or higher and/or macular edema. IDx-DR diabetic retinopathy exam does not replace a comprehensive eye exam. Other 06/14/2024 3:13 PM TERRITORY SUPERVISOR us Marium Dixon MD OUTPT PROCEDURE ORDERABLES Final Result EXTERNAL EKG DIGITAL DIAGNOSTICS * UR MICROALBUMIN/CREATININE RATIO RANDOM (06/10/2024 10:02 AM TERRITORY SUPERVISOR) [facility] RAN UR MICROALBUMIN 0.54 mg/dL 06/10/2024 10:44 AM TERRITORY SUPERVISOR [facility] Comment:No reference range h as been established. Consider Clinical Correlation. CREATININE URINE 20.3 mg/dL 06/10/20 24 10:44 AM TERRITORY SUPERVISOR [facility] Comment:No reference range h as been established. Consider Clinical Correlation. ALB/CREAT RATIO 27 0 - 30 mg/g CRE 06/10/2024 10:44 AM TERRITORY SUPERVISOR [facility] Urine Non-Phlebotomy Collection / Unknown 06/10/2024 10:02 AM TERRITORY SUPERVISOR 06/10/2024 10:14 AM TERRITORY SUPERVISOR us Marium Dixon MD URINE ORDERABLES Final Result [facility] [address] [place] [address] from Last 3 Months or Most Recently Relevant to Health Maintenance Insurance [facility]ICAID [facility] Advance Directives * Full Code (Latest Code Status on File) Date Activated Date Inactivated Comments 10/10/2018 4:31 AM 10/12/2018 8:38 PM CPR-Full Tobi atment: FULL ARREST: Attempt Resuscitation/CPR wit intubation and mechanical ventilation. PRE-ARREST: Use entire range of life support measures to stabilize the patient. Care Teams Customs Import Specialist Relationship Specialty Start Date End Date Curtis Hernandez APRN, EMERGENCY VEHICLE OPERATIONS INSTRUCTOR [address] [phone] PCP - General Advanced Practice Nurse 06/11/21 Marium Dixon MD [address] [facility] [address] [place] [address] Consulting Physician Endocrinology 07/16/20
[2025-03-28 12:34] LABS: Ferritin 59.60 ng/mL (6.24-137)
== END 2025-03-28 10:54 | disposition home or self-care (01) ==
LOC: ANHLAB 10:54
PROVIDERS: PCP Internal Medicine; Visit Provider Internal Medicine Critical Care Medicine
DX: D64.9 Anemia, unspecified (principal)
CPT/HCPCS: 36415; 82728